=== PATIENT | female | born 1935 | race Caucasian/White ===

== ENCOUNTER 2017-09-04 11:59 | Observation (INO) ==
[2017-09-04] MEDS ORDERED: Ondansetron 4 MG/2 ML VIAL IVP ONE (12:05)
[2017-09-04] MEDS ORDERED: 0.9 % Sodium Chloride 1,000 ML IVC ONE (12:05)
[2017-09-04] MEDS ORDERED: Famotidine 20 MG/2 ML VIAL IVP ONE (12:05)
--- NOTE | 2017-09-04 12:10 | Emergency Department Note ---
Disposition Clinical Impression: Heart block AV third degree Disposition: Admitted As Inpatient Condition: Good Referrals: Dawn Brown MD [Primary Care Provider] - Forms: ED Satisfaction Letter Time of Disposition: 13:19 Nausea/Vomiting/Diarrhea HPI - General Chief complaint: ED Nausea/Vomiting/Diarrhea Stated complaint: N/V Time Seen by Provider: 09/04/17 12:05 Source: patient, family, EMS Mode of arrival: EMS Limitations: no limitations Nursing Notes Reviewed: Yes Vital Signs Reviewed: Yes - History of Present Illness HPI Narrative: Information obtained from the patient's daughter. The patient did not eat breakfast today. They were going out to eat lunch when she became diaphoretic and flushed and then developed nausea and vomiting. Possible syncopal event while sitting. The patient notes nausea and a "upset stomach" but denies abdominal pain. The daughter states this has happened "numerous" times previously without diagnosis. 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 Associated symptoms: Reports: diaphoresis, nausea/vomiting, syncope - Related Data Home Medications Medication Instructions Recorded Confirmed Aspirin [Adult Low Dose Aspirin EC] 81 mg PO DAILY #0 08/17/15 08/18/16 Esomeprazole Magnesium [Nexium] 40 mg PO DAILY #0 08/17/15 08/18/16 Lisinopril [Zestril] 20 mg PO DAILY #0 08/17/15 08/18/16 Atorvastatin [Lipitor] 40 mg PO DAILY 08/18/15 08/18/16 Cholecalciferol (Vitamin D3) 1,000 unit PO DAILY 01/06/16 08/18/16 [Vitamin D3] Fluticasone Propionate Nasal 50 mcg NS DAILY 01/06/16 08/18/16 [Flonase] Metoprolol XL (24 HR) Succ [Toprol 25 mg PO DAILY 01/06/16 08/18/16 Xl] Naproxen Sodium [Aleve] 220 mg PO BID PRN 01/06/16 08/18/16 Sennosides/Docusate Sodium [Senna 1 tab PO DAILY 01/06/16 08/18/16 Plus] Allergies Allergy/AdvReac Type Severity Reaction Status Date / Time acetaminophen [From Tylenol] AdvReac Unconscious Verified 01/06/16 13:00 All systems ED: reviewed and negative except as stated. Constitutional: Reports: as per HPI Eyes: Reports: as per HPI ENT ED: Reports: as per HPI Cardiovascular: Reports: palpitations, syncope Respiratory: Reports: as per HPI Gastrointestinal: Reports: nausea, vomiting Genitourinary: Reports: as per HPI Musculoskeletal: Reports: as per HPI Integumentary: Reports: other (Diaphoresis) Neurological: Reports: as per HPI Psychiatric: Reports: as per HPI Endocrine: Reports: as per HPI Hematological/Lymphatic: Reports: as per HPI Allergic/Immunologic: Reports: as per HPI Past Medical History - Past Medical History Source: patient Medical history: Reports: arthritis, asthma, coronary artery disease, GERD, hyperlipidemia, hypertension Surgical history: Reports: breast surgery (multiple mass/cyst removal), coronary bypass (CABG), hysterectomy Psychiatric history: Reports: no psych history GARMENT STEAMER history: Reports: non-contributory - Social History Smoking Status: Never smoker Smokeless Tobacco Status: No Alcohol use: Reports: none Drug use: Reports: none Physical Exam Actively retching - General Limitations: no limitations General appearance: alert - Head Head exam: atraumatic - Eye Eye exam: Present: normal appearance - ENT ENT exam: normal exam - Neck Neck exam: Present: normal inspection - Chest Chest inspection: Present: normal inspection, symmetric chest wall rise - Respiratory Respiratory exam: Present: normal lung sounds bilaterally - Cardiovascular Cardiovascular exam: Present: regular rate, normal rhythm, normal heart sounds - Abdominal Exam Abdominal exam: Present: soft, Non-Tender Abdominal tenderness: Absent: RUQ - Extremities Exam Extremities exam: Present: normal inspection - Neurological Exam Neurological exam: Present: alert, oriented X3, CN II-XII intact - Psychiatric Psychiatric exam: Present: normal affect, normal mood - Skin Skin exam: Present: warm, intact, diaphoresis Course Course Narrative: Patient presents with nausea, vomiting, diaphoresis. She is actively retching at the time of my exam - Reevaluation(s) Reevaluation #1: The patient had an identified bradycardia arrhythmia on the heat treat technician. I did review the rhythm strip and suspect third-degree heart block. Cardiology paged. Case discussed with the admitting hospitalist Dr. Harper who accepts admission. I will obtain the patient's home medication list Vital Signs Temperature 98.0 F 09/04/17 12:12 Pulse Rate 91 09/04/17 12:12 Respiratory Rate 12 09/04/17 12:12 Blood Pressure 138/79 09/04/17 12:12 O2 Sat by Pulse Oximetry 89 09/04/17 12:12 Temperature 98 F 09/04/17 12:23 Pulse Rate 87 09/04/17 12:23 Respiratory Rate 14 09/04/17 12:23 Blood Pressure 138/79 09/04/17 12:23 O2 Sat by Pulse Oximetry 95 09/04/17 12:38 Oxygen Delivery Oxygen Delivery Nasal Cannula Nausea/Vomiting/Diarrhea - Medical Records Medical records reviewed: Yes I reviewed the patient's medical records. - Lab Data Lab results reviewed: Yes I reviewed the patient's lab results. Result diagrams: 09/04/17 12:30 09/04/17 12:30 Lab Results 09/04/17 09/04/17 09/04/17 Range/Units 12:30 12:30 12:30 WBC 11.2 H (4.3-11.1) K/mcL RBC 5.26 H (3.82-4.97) M/mcL Hgb 12.8 (11.5-15.4) g/dL Hct 41.5 (35.3-44.9) % MCV 78.9 L (83.0-100.0) fL MCH 24.3 L (28.0-33.3) pg MCHC 30.8 L (31.6-35.5) g/dL RDW 17.8 H (11.5-14.5) % Plt Count 448 H (140-400) K/mcL MPV 10.7 (9.4-12.4) fL Immature Gran % 0.4 (0-4) % Seg Neutrophils % 69.8 % Lymphocytes % 23.3 % Monocytes % 5.2 % Eosinophils % 0.7 % Basophils % 0.6 % Neutrophils # 7.8 (1.6-8.9) K/mcL Lymphocytes # 2.6 (0.6-4.6) K/mcL Monocytes # 0.6 (0.0-1.3) K/mcL Eosinophils # 0.1 (0.0-0.6) K/mcL Basophils # 0.1 (0.0-0.2) K/mcL Sodium 140 (136-145) mEq/L Potassium 3.7 (3.5-4.5) mEq/L Chloride 108 (98-109) mEq/L Carbon Dioxide 18 L (19-29) mEq/L BUN 15 (7-20) mg/dL Creatinine 1.38 H (0.57-1.11) mg/dL Est GFR ( Amer) 44 L (> 60) Est GFR (Non-Af Amer) 36 L (> 60) BUN/Creatinine Ratio 11 (6-26) Glucose 161 H (70-99) mg/dL POC Glucose (58-89) Calculated Osmolality 294 (280-300) Calcium 9.2 (8.6-10.8) mg/dL Total Bilirubin 0.5 (0.2-1.2) mg/dL AST 23 (5-34) Units/L ALT 18 (0-55) Units/L Alkaline Phosphatase 100 (38-126) Units/L Troponin I 0.00 (0-0.03) ng/mL Serum Total Protein 7.5 (6.0-8.3) g/dL Albumin 3.8 (3.5-5.0) g/dL Globulin 3.7 H (2.4-3.5) g/dL Albumin/Globulin Ratio 1.0 L (1.1-2.2) Amylase 67 (25-125) Units/L 11/15/17 Range/Units 12:34 WBC (4.3-11.1) K/mcL RBC (3.82-4.97) M/mcL Hgb (11.5-15.4) g/dL Hct (35.3-44.9) % MCV (83.0-100.0) fL MCH (28.0-33.3) pg MCHC (31.6-35.5) g/dL RDW (11.5-14.5) % Plt Count (140-400) K/mcL MPV (9.4-12.4) fL Immature Gran % (0-4) % Seg Neutrophils % % Lymphocytes % % Monocytes % % Eosinophils % % Basophils % % Neutrophils # (1.6-8.9) K/mcL Lymphocytes # (0.6-4.6) K/mcL Monocytes # (0.0-1.3) K/mcL Eosinophils # (0.0-0.6) K/mcL Basophils # (0.0-0.2) K/mcL Sodium (136-145) mEq/L Potassium (3.5-4.5) mEq/L Chloride (98-109) mEq/L Carbon Dioxide (19-29) mEq/L BUN (7-20) mg/dL Creatinine (0.57-1.11) mg/dL Est GFR ( Amer) (> 60) Est GFR (Non-Af Amer) (> 60) BUN/Creatinine Ratio (6-26) Glucose (70-99) mg/dL POC Glucose 146 H (58-89) Calculated Osmolality (280-300) Calcium (8.6-10.8) mg/dL Total Bilirubin (0.2-1.2) mg/dL AST (5-34) Units/L ALT (0-55) Units/L Alkaline Phosphatase (38-126) Units/L Troponin I (0-0.03) ng/mL Serum Total Protein (6.0-8.3) g/dL Albumin (3.5-5.0) g/dL Globulin (2.4-3.5) g/dL Albumin/Globulin Ratio (1.1-2.2) Amylase (25-125) Units/L - Radiology Data Radiology results reviewed: Yes I reviewed the patient's radiology results. - EKG Data EKG attestation: Yes I reviewed and interpreted this EKG. EKG results narrative: Sinus rhythm with first-degree AV block rate 89 IN 218 QRS 87 QT/QTC 386/432 Critical Care Time Critical Care Time: Yes Total Critical Care Time: 30 Attestation: The high probability of a clinically significant, sudden or life threatening deterioration of the [] system(s) required my full and direct attention, intervention and personal management. The aggregate critical care time was [] minutes. This time is in addition to time spent performing reported procedures but includes the following: [] Data Review and interpretation [] Patient assessment and monitoring of vital signs [] Documentation [] Medication orders and management
[2017-09-04 12:46] LABS: Basophils # 0.1 K/mcL (0.0-0.2); Basophils % 0.6 %; Eosinophils # 0.1 K/mcL (0.0-0.6); Eosinophils % 0.7 %; Hematocrit 41.5 % (35.3-44.9); Hemoglobin 12.8 g/dL (11.5-15.4); Immature Granulocytes % 0.4 % (0-4); Lymphocytes # 2.6 K/mcL (0.6-4.6); Lymphocytes % 23.3 %; Mean Corpuscular HGB Conc 30.8 g/dL (31.6-35.5); Mean Corpuscular Hemoglobin 24.3 pg (28.0-33.3); Mean Corpuscular Volume 78.9 fL (83.0-100.0); Mean Platelet Volume 10.7 fL (9.4-12.4); Monocytes # 0.6 K/mcL (0.0-1.3); Monocytes % 5.2 %; Neutrophils # 7.8 K/mcL (1.6-8.9); Platelet Count 448 K/mcL (140-400); Red Blood Count 5.26 M/mcL (3.82-4.97); Red Cell Distribution Width 17.8 % (11.5-14.5); Segmented Neutrophils % 69.8 %
[2017-09-04 12:57] LABS: Albumin 3.8 g/dL (3.5-5.0); Bilirubin,Total 0.5 mg/dL (0.2-1.2); Calcium 9.2 mg/dL (8.6-10.8); Globulin 3.7 g/dL (2.4-3.5); Potassium 3.7 mEq/L (3.5-4.5); Total Protein 7.5 g/dL (6.0-8.3)
[2017-09-04 13:39] LABS: Magnesium 1.8 mg/dL (1.6-2.6)
[2017-09-04] MEDS ORDERED: Ondansetron 4 MG/2 ML VIAL IVP PRN (14:20)
[2017-09-04] MEDS ORDERED: Naloxone 0.4 MG/ML INJ IVP PRN (14:20)
[2017-09-04] MEDS ORDERED: MOM Conc 10 ML UD.LIQ PO PRN (14:20)
[2017-09-04] MEDS ORDERED: Mag Hydrox/Al Hydrox/Simeth 30 ML UDC PO PRN (14:20)
--- NOTE | 2017-09-04 15:27 | Internal Med History&Physical ---
Date of Encounter: 09/04/17 Time of Encounter: 15:00 Assessment and Plan (1) Heart block AV third degree Current visit: Yes Status: Acute Admit to telemetry. Hold AVN blockers. Pacer pads. Cardiology eval. (2) Syncope Current visit: No Status: Acute Appears to be related to heart block. Monitor on tele tonight. Card eval. Qualifiers: Syncope type: unspecified Qualified Code(s): R55 - Syncope and collapse (3) Chronic kidney disease, stage 3 Current visit: No Status: Chronic Avoid nephrotoxins. (4) Coronary artery disease Current visit: No Status: Chronic Chronic issue Qualifiers: Coronary Disease-Associated Artery/Lesion type: bypass graft [place] vs. transplanted heart: [place] heart Associated angina: without angina Qualified Code(s): I25.810 - Atherosclerosis of coronary artery bypass graft(s) without angina pectoris (5) Hypertension Current visit: No Status: Chronic Chronic issue Qualifiers: Hypertension type: essential hypertension Qualified Code(s): I10 - Essential (primary) hypertension (6) Hyperlipidemia Current visit: No Status: Chronic Chronic issue Qualifiers: Hyperlipidemia type: unspecified Qualified Code(s): E78.5 - Hyperlipidemia , unspecified Internal Medicine - H&P: HPI Chief complaint: syncope Admitted From: Emergency Dept Plans for Post Hospital Care: Home History of present illness: Ms. Ojeda is a 82 year old female presented to ED after syncopal episode. She had been at store when she became dizzy and nausea. She vomited and passed out. Transported to ED and found to have episode of complete heart block. Currently she feels fine and is at baseline. No fever or chills. No chest pain. Takes metoprolol. She is high risk due to potential for worsening cardiac status and heart block. Past Med Surg Social Fam HX - Past Medical History Medical history: arthritis, asthma, coronary artery disease, GERD, hyperlipidemia, hypertension Psychiatric history: no psych history - Past Surgical History Surgical History: breast surgery, coronary bypass (CABG), hysterectomy - Social History Smoking Status: Never smoker Smokeless Tobacco Status: No Alcohol use: none Drug use: none - Family History Mother Family Member Ethnicity: Non- Living Status: Hx Family Cardiac Disorders: No Hx Family Respiratory Disorders: No Hx Family Cancer: Yes (Breast CA) Hx Family GI Disorders: No Hx Family Endocrine Disorder: No Hx Family Neuromuscular Disorders: No Hx Family Neurologic Disorders: Yes (Stroke) Hx Family HEENT Disorders: No Hx Family Autoimmune Disorders: No Internal Medicine - H&P: Meds Aspirin [Adult Low Dose Aspirin EC] 81 mg PO DAILY #0 08/17/15 [History] Atorvastatin [Lipitor] 40 mg PO DAILY 08/18/15 [History] Cholecalciferol (Vitamin D3) [Vitamin D3] 1,000 unit PO DAILY 01/06/16 [History] Sennosides/Docusate Sodium [Senna Plus] 1 tab PO DAILY 01/06/16 [History] Esomeprazole Magnesium [Nexium 24Hr] 20 mg PO DAILY 09/04/17 [History] Metoprolol [Lopressor] 25 mg PO BID 09/04/17 [History] 3 Allergy/AdvReac Type Severity Reaction Status Date / Time acetaminophen [From Tylenol] AdvReac Unconscious Verified 09/04/17 13:45 All Systems PM: A 10-system review of systems was performed and is negative for pertinent findings except as documented above in the HPI. - Constitutional Constitutional: fatigue, malaise - EENT Eyes: no diplopia, no loss of vision Ears: no decreased hearing Nose, mouth and throat: dry mouth, no nasal discharge, no sore throat - Cardiovascular Cardiovascular ROS IM: no dyspnea, no dyspnea on exertion, no orthopnea, no paroxysmal nocturnal dyspnea - Respiratory Respiratory: no cough, no wheezing - Gastrointestinal Gastrointestinal: no abdominal pain, no constipation, no diarrhea, no melena - Genitourinary Genitourinary: no difficulty urinating, no nocturia, no urinary urgency - Musculoskeletal Musculoskeletal ROS IM: arthralgias, no back pain - Integumentary Integumentary IM: no erythema, no rash - Neurological Neurological ROS: dizziness, no confusion, no tingling - Endocrine Endocrine IM: no cold intolerance, no heat intolerance - Allergic/Immunologic Allergic/Immunologic: no itchy eyes - Constitutional Vitals: Temp Pulse Resp BP Pulse Ox 97.8 F 78 18 144/73 96 09/04/17 14:21 09/04/17 14:21 09/04/17 14:21 09/04/17 14:21 09/04/17 14:21 General appearance: Present: A&O X 3, pleasant, answers questions appropriately - Head Head exam: Present: atraumatic, normocephalic - Eye Eye exam: Present: EOMI, PERRL, conjuntiva pink - ENT ENT exam: Present: mucous membranes dry - Neck Neck exam general surgery: Absent: lymphadenopathy, thyromegaly - Respiratory Respiratory exam: Present: CTAB. Absent: rales, rhonchi, wheezes - Cardiovascular Cardiovascular exam: Present: RRR. Absent: bradycardia, tachycardia - GI/Abdominal GI/Abdominal exam: Present: soft. Absent: mass, tenderness - Extremities Exam Extremities exam: Present: warm. Absent: tenderness - Neurological Exam Neurological exam: Present: alert, oriented X3 - Skin Skin exam: Present: dry, warm. Absent: rash Internal Med - H&P Results - Labs CBC & Chem 7: 09/05/17 05:32 09/05/17 05:32
--- NOTE | 2017-09-04 15:34 | Cardiology Consult Note ---
<Maged Beatty R - Last Filed: 09/04/17 15:44> Date of Encounter: 09/04/17 Time of Encounter: 15:33 Assessment and Plan (1) Heart block AV third degree Current Visit: Yes Status: Acute Reportedly 3 episodes of syncope over the past year, most recently this AM while shopping at [employer]. She became dizzy, lightheaded, sat on a bench and had nausea/vomiting and a syncopal event. EMS called--Strips reviewed from EMS show 3rd degree heart block. Currently SR 1st degree block, HR 80s and asymptomatic. Hold BB. K 3.7. TSH normal 06/2017. Echo 05/08/17 EF preserved. Negative stress test 08/07/17. Recheck echo. Recommend PPM. Will make NPO after midnight tonight and discuss with Dr. Timmy Zambrano, tentative PPM tomorrow. (2) Syncope Current Visit: No Status: Acute Secondary to 3rd degree heart block. Will discuss with Dr. Timmy Zambrano, tentatively plan for PPM tomorrow. Qualifiers: Syncope type: unspecified Qualified Code(s): R55 - Syncope and collapse (3) Coronary artery disease Current Visit: No Status: Chronic S/P CABG x 2 in 2014. Negative stress test last month. Hold BB in setting of intermittent 3rd degree heart block. Continue ASA and Statin. Qualifiers: Coronary Disease-Associated Artery/Lesion type: bypass graft [place] vs. transplanted heart: [place] heart Associated angina: without angina Qualified Code(s): I25.810 - Atherosclerosis of coronary artery bypass graft(s) without angina pectoris Discussion w patient/family: The assessment and plan as outlined above was discussed with the patient and/or family members who expressed understanding and agreement. All questions were answered. Thank you for involving us in the care of your patient. Please call with any questions. I will discuss all the above with Dr. Hudson and make changes as necessary. History of Present Illness Consult date: 09/04/17 Requesting physician: Darinel Harper Consult reason: 3rd degree heart block Chief complaint: syncope, n/v, dizziness History of present illness: Ms. Ojeda is a 82 year old female with PMH of CAD s/p CABG 04/2015 utilizing GARCIA to LAD, SVG to diagonal for severe 2 vessel CAD, CKD stage 3. She was shopping at [employer] this AM, became dizzy/lightheaded and sat on a bench, then had nausea/vomiting and a syncopal event witnessed by daughter that reportedly lasted 1 minute. She has had approximately 3 syncopal events in the past year. EMS was called, strips on their arrival show 3rd degree heart block. On presentation here and currently she is SR with first degree block HR 80s. She is currently asymptomatic. She denies chest pain or dyspnea. Recent CV testing: Pharmacologic nuclear stress test 08/07/17: Perfusion imaging negative for ischemia or infarct. Gated EF >70%. Echo 05/08/17: LVEF 60%, Normal left ventricular size and systolic function, Mild concentric hypertrophy of the left ventricle, There is evidence of mild diastolic dysfunction of the left ventricle with elevated filling pressures, RV size is normal. Function is not well evaluated. No significant valvular dysfunction. No pulmonary hypertension by TR gradient, 19 mmHg. Past Med Surg Social Fam HX - Past Medical History Medical history: arthritis, asthma, coronary artery disease, GERD, hyperlipidemia, hypertension Psychiatric history: no psych history - Past Surgical History Surgical History: breast surgery, coronary bypass (CABG), hysterectomy - Social History Smoking Status: Never smoker Smokeless Tobacco Status: No Alcohol use: none Drug use: none - Family History Mother Family Member Ethnicity: Non- Living Status: Hx Family Cardiac Disorders: No Hx Family Respiratory Disorders: No Hx Family Cancer: Yes (Breast CA) Hx Family GI Disorders: No Hx Family Endocrine Disorder: No Hx Family Neuromuscular Disorders: No Hx Family Neurologic Disorders: Yes (Stroke) Hx Family HEENT Disorders: No Hx Family Autoimmune Disorders: No Medications and Allergies Aspirin [Adult Low Dose Aspirin EC] 81 mg PO DAILY #0 08/17/15 [History] Atorvastatin [Lipitor] 40 mg PO DAILY 08/18/15 [History] Cholecalciferol (Vitamin D3) [Vitamin D3] 1,000 unit PO DAILY 01/06/16 [History] Sennosides/Docusate Sodium [Senna Plus] 1 tab PO DAILY 01/06/16 [History] Esomeprazole Magnesium [Nexium 24Hr] 20 mg PO DAILY 09/04/17 [History] Metoprolol [Lopressor] 25 mg PO BID 09/04/17 [History] 3 Allergy/AdvReac Type Severity Reaction Status Date / Time acetaminophen [From Tylenol] AdvReac Unconscious Verified 09/04/17 13:45 All Systems Review: A 10-system review of systems was performed and is negative for pertinent findings except as documented above in the HPI. - Cardiovascular Cardiovascular: as per HPI, lightheadedness, syncope - Gastrointestinal Gastrointestinal: nausea - Neurological Neurological: dizziness, syncope Physical Examination Vital Signs, Last 4 Hours Temp Pulse Resp BP Pulse Ox 09/04/17 14:21 97.8 F 78 18 144/73 96 Vital Signs Temp Pulse Resp BP Pulse Ox 09/04/17 14:21 97.8 F 78 18 144/73 96 09/04/17 13:00 84 14 131/64 95 09/04/17 12:45 89 14 121/85 95 09/04/17 12:38 95 09/04/17 12:23 98 F 87 14 138/79 94 09/04/17 12:12 98.0 F 91 12 138/79 89 Intake and Output 09/03/17 09/04/17 09/04/17 23:59 07:59 15:59 Other: Weight 85.984 kg Blood Glucose* 146 Patient Weight 09/04/17 23:59 Weight 85.984 kg General: Conversant, No Apparent Distress HEENT: Atraumatic, Normocephaly, Mucus Membranes Moist Neck: No JVD, Normal carotid pulses Cardiac: Reg Rate and Rhythm, Normal S1 and S2, No Murmur Lungs: Normal Breath Sounds, No Wheeze, Rales, Rhonchi Neuro: Alert and responsive, No focal deficits noted Abdomen: Soft, Non-Tender Skin: No rashes noted on visualized skin Musculoskeletal: No Chest Wall Tenderness Extremities: No Clubbing, No Cyanosis, No Edema, Normal Pulses Results 09/04/17 12:30 09/04/17 12:30 Short CBC 09/04/17 Range/Units 12:30 WBC 11.2 H (4.3-11.1) K/mcL Hgb 12.8 (11.5-15.4) g/dL Hct 41.5 (35.3-44.9) % Plt Count 448 H (140-400) K/mcL Neutrophils # 7.8 (1.6-8.9) K/mcL BMP 09/04/17 Range/Units 12:30 Sodium 140 (136-145) mEq/L Potassium 3.7 (3.5-4.5) mEq/L Chloride 108 (98-109) mEq/L Carbon Dioxide 18 L (19-29) mEq/L BUN 15 (7-20) mg/dL Creatinine 1.38 H (0.57-1.11) mg/dL Glucose 161 H (70-99) mg/dL Calcium 9.2 (8.6-10.8) mg/dL Cardiac Enzymes 09/04/17 Range/Units 12:30 Troponin I 0.00 (0-0.03) ng/mL Liver Function 09/04/17 Range/Units 12:30 Total Bilirubin 0.5 (0.2-1.2) mg/dL AST 23 (5-34) Units/L ALT 18 (0-55) Units/L Alkaline Phosphatase 100 (38-126) Units/L Albumin 3.8 (3.5-5.0) g/dL Impressions Chest X-Ray 09/04/17 13:00 IMPRESSION: Left lower lobe airspace disease with hypoaeration at the lung bases bilaterally similar in appearance to the previous exam done July 2016 most likely reflecting atelectatic changes D/ / Neal Bailey MD / Neal Bailey MD Interpreting Provider: Neal Bailey MD Active Medications Al Hydrox/Mg Hydrox/Simethicone (Maalox) 15 ml PO Q6HR PRN PRN Reason: Dyspepsia Stop: 03/06/18 14:21 Magnesium Hydroxide (Milk Of Magnesia Conc) 10 ml PO DAILY PRN PRN Reason: Indigestion Stop: 03/06/18 14:21 Naloxone HCl (Narcan) 0.4 mg IVP Q2MIN PRN PRN Reason: Opioid Reversal Stop: 03/06/18 14:21 Ondansetron HCl (Zofran) 4 mg IVP Q8HR PRN PRN Reason: Nausea And Vomiting Stop: 03/06/18 14:21 - Imaging and Cardiology Stress Test: report reviewed Echo: report reviewed Cardiac cath: report reviewed - EKG Interpretation EKG results cardiology: personally reviewed (3rd degree heart block on strips, EKG SR 1st degree block) Consult Discharge Plan - Plan Referrals: Dawn Brown MD [Primary Care Provider] - <Zysek,Esther - Last Filed: 09/05/17 15:08> Date of Encounter: 09/05/17 - Attending Attestation I have personally performed a face to face evaluation on this patient. I have reviewed and agree with the care plan with HEAT TREATER HEAD: Ms. Ojeda presents with a syncopal event while shopping. She's had a few episodes of syncope over the past year. Rhythm strips by EMS demonstrated CHB. She has been hemodynamically stable currently in NSR with first degree block. Recommend holding beta loraine. TSH, K normal. Echo previously demonstrated normal LV systolic function. Negative stress test in July 2017. Recommend EP consult for pacemaker placement. Assessment and Plan Discussion w patient/family: The assessment and plan as outlined above was discussed with the patient and/or family members who expressed understanding and agreement. All questions were answered. Thank you for involving us in the care of your patient. Please call with any questions. History of Present Illness History of present illness: Ms. Ojeda is a 82 year old female All Systems Review: A 10-system review of systems was performed and is negative for pertinent findings except as documented above in the HPI. Physical Examination Vital Signs, Last 4 Hours Temp Pulse Resp BP Pulse Ox 09/05/17 11:26 98.5 F 71 16 147/77 95 Results 09/05/17 05:32 09/05/17 05:32 Lab Results 09/05/17 09/05/17 09/05/17 05:32 05:32 13:11 WBC 10.5 Hgb 10.8 L D Hct 36.2 Plt Count 317 INR 1.1 Sodium 139 Potassium 4.2 Chloride 109 Carbon Dioxide 24 BUN 15 Creatinine 1.04 Glucose 103 H Calcium 8.5 L Magnesium 1.9
--- NOTE | 2017-09-04 15:52 | Electrocardiograph Report ---
[place] [address] Test Date: 2017-09-04 Pat Name: Carey Ojeda Department: 104 Room: 3B46 Gender: F Weight Inspector: MSC : 1935 Requested By: Vita Torres Order Number: [id number] Reading MD: Derrick Sanchez MD Measurements Intervals [place] Rate: 89 P: -19 NM: 218 QRS: 23 QRSD: 87 T: 27 QT: 386 QTc: 432 Interpretive Statements SINUS RHYTHM WITH FIRST DEGREE AV BLOCK BASELINE ARTIFACT Electronically Signed On 09-04-2017 15:50:43 EST by Derrick Sanchez MD
--- NOTE | 2017-09-04 15:53 | Electrocardiograph Report ---
[address] [place] [address] Test Date: 2017-09-04 Pat Name: Carey Ojeda Department: 104 Room: 3B46 Gender: F Plastic Surgery Technician: : 1935 Requested By: Bony Hoover Order Number: [id number] Reading MD: Derrick Sanchez MD Measurements Intervals [place] Rate: 87 P: -15 IA: 223 QRS: 18 QRSD: 105 T: 11 QT: 403 QTc: 447 Interpretive Statements SINUS RHYTHM WITH FIRST DEGREE AV BLOCK INFERIOR MYOCARDIAL INFARCTION, PROBABLY OLD Electronically Signed On 09-04-2017 15:51:35 EST by Derrick Sanchez MD
[2017-09-05 06:10] LABS: Basophils # 0.1 K/mcL (0.0-0.2); Basophils % 0.5 %; Eosinophils # 0.1 K/mcL (0.0-0.6); Hematocrit 36.2 % (35.3-44.9); Immature Granulocytes % 0.4 % (0-4); Lymphocytes # 2.1 K/mcL (0.6-4.6); Lymphocytes % 20.2 %; Mean Corpuscular HGB Conc 29.8 g/dL (31.6-35.5); Mean Corpuscular Hemoglobin 24.1 pg (28.0-33.3); Mean Corpuscular Volume 80.6 fL (83.0-100.0); Mean Platelet Volume 11.1 fL (9.4-12.4); Monocytes # 0.9 K/mcL (0.0-1.3); Monocytes % 8.1 %; Neutrophils # 7.4 K/mcL (1.6-8.9); Platelet Count 317 K/mcL (140-400); Red Blood Count 4.49 M/mcL (3.82-4.97); Segmented Neutrophils % 69.8 %
[2017-09-05 06:12] LABS: Hemoglobin 10.8 g/dL (11.5-15.4)
[2017-09-05 06:26] LABS: BUN/Creatinine Ratio 14 (6-26); Blood Urea Nitrogen 15 mg/dL (7-20); Calcium 8.5 mg/dL (8.6-10.8); Carbon Dioxide 24 mEq/L (19-29); Chloride 109 mEq/L (98-109); Glucose 103 mg/dL (70-99); Magnesium 1.9 mg/dL (1.6-2.6); Osmolality,Calculated 289 (280-300); Potassium 4.2 mEq/L (3.5-4.5); Sodium 139 mEq/L (136-145); eGFR For African Americans > 60 (> 60); eGFR For Non-African Americans 50 (> 60)
[2017-09-05] MEDS: Aspirin 81 MG TAB.CHEW PO SCH (09:30)
--- NOTE | 2017-09-05 11:37 | Electrophysiology Consult Note ---
<Priscilla Angel - Last Filed: 09/05/17 11:43> Date of Encounter: 09/05/17 Time of Encounter: 10:00 Assessment and Plan (1) Heart block AV third degree Current Visit: Yes Status: Acute Per EP: -Reportedly 3 episodes of syncope over the past year, most recently this AM while shopping at [employer]. She became dizzy, lightheaded, sat on a bench and had nausea/vomiting and a syncopal event. -EMS called--Strips reviewed from EMS show 3rd degree heart block. -Average HR on telemetry noted to be 73, sinus rhythm. PACs and PVCs noted. -Hold BB. -TSH normal 06/2017. -Echo 05/08/17 EF preserved. Negative stress test 08/07/17. -TTE this admission with LVEF 60-65%, mild concentric LVH, all morillo with normal motion. -Recommend PPM. RIsks versus benefits explained to patient and family. Patient agreeable to proceed. -Will continue to monitor. (2) Syncope Current Visit: No Status: Acute Per EP: -Suspect Secondary to 3rd degree heart block. -Plan for PPM today. Qualifiers: Syncope type: unspecified Qualified Code(s): R55 - Syncope and collapse Discussion w patient/family: The assessment and plan as outlined above was discussed with the patient and/or family members who expressed understanding and agreement. All questions were answered. Thank you for involving us in the care of your patient. Please call with any questions. Discussed and reviewed with Dr.John Zambrano. History of Present Illness Consult date: 09/05/17 Requesting physician: Maged Beatty Consult reason: third degree heart block Chief complaint: syncope History of present illness: Ms. Ojeda is a 82 year old female with PMH of CAD s/p CABG 04/2015 utilizing GARCIA to LAD, SVG to diagonal for severe 2 vessel CAD, CKD stage 3. Patient presented to [facility] after syncopal event at [facility] per EMS. EP has been asked to see and evaluate patient due to third degree heart block noted on strips from EMS. Patient reports over the past year has had 3 syncopal episodes. Patient denies current dizziness or lightheadedness. Past Med Surg Social Fam HX - Past Medical History Attestation: Yes The following information was validated with the patient. Source: patient, old records reviewed, obtained from family Medical history: arthritis, asthma, coronary artery disease, GERD, hyperlipidemia, hypertension, syncope Psychiatric history: no psych history - Past Surgical History Surgical History: breast surgery, coronary bypass (CABG), hysterectomy - Social History Smoking Status: Never smoker Smokeless Tobacco Status: No Alcohol use: none Drug use: none - Family History Mother Family Member Ethnicity: Non- Living Status: Hx Family Cardiac Disorders: No Hx Family Respiratory Disorders: No Hx Family Cancer: Yes (Breast CA) Hx Family GI Disorders: No Hx Family Endocrine Disorder: No Hx Family Neuromuscular Disorders: No Hx Family Neurologic Disorders: Yes (Stroke) Hx Family HEENT Disorders: No Hx Family Autoimmune Disorders: No Medications and Allergies Aspirin [Adult Low Dose Aspirin EC] 81 mg PO DAILY #0 08/17/15 [History] Atorvastatin [Lipitor] 40 mg PO DAILY 08/18/15 [History] Cholecalciferol (Vitamin D3) [Vitamin D3] 1,000 unit PO DAILY 01/06/16 [History] Sennosides/Docusate Sodium [Senna Plus] 1 tab PO DAILY 01/06/16 [History] Esomeprazole Magnesium [Nexium 24Hr] 20 mg PO DAILY 09/04/17 [History] Metoprolol [Lopressor] 25 mg PO BID 09/04/17 [History] 3 Allergy/AdvReac Type Severity Reaction Status Date / Time acetaminophen [From Tylenol] AdvReac Unconscious Verified 09/04/17 13:45 All Systems Review: A 10-system review of systems was performed and is negative for pertinent findings except as documented above in the HPI. - Cardiovascular Cardiovascular: as per HPI - Neurological Neurological: syncope Physical Examination Vital Signs, Last 4 Hours Temp Pulse Resp BP Pulse Ox 09/05/17 11:26 98.5 F 71 16 147/77 95 09/05/17 09:30 95 09/05/17 07:52 97.6 F 66 18 125/78 95 General: Conversant, No Apparent Distress HEENT: Atraumatic, Normocephaly, Mucus Membranes Moist Neck: No JVD, Normal carotid pulses Cardiac: Reg Rate and Rhythm, Normal S1 and S2, No Murmur Lungs: Normal Breath Sounds, No Wheeze, Rales, Rhonchi Neuro: Alert and responsive, No focal deficits noted Abdomen: Soft, Non-Tender Skin: No rashes noted on visualized skin Musculoskeletal: No Chest Wall Tenderness Extremities: No Clubbing, No Cyanosis, No Edema, Normal Pulses Results 09/05/17 05:32 09/05/17 05:32 Lab Results Impressions Chest X-Ray 09/04/17 13:00 IMPRESSION: Left lower lobe airspace disease with hypoaeration at the lung bases bilaterally similar in appearance to the previous exam done July 2016 most likely reflecting atelectatic changes D/ / Neal Bailey MD / Neal Bailey MD Interpreting Provider: Neal Bailey MD Echocardiogram 09/04/17 15:24 Impressions: Findings: ADDENDUM: 09/05/17 0732 Impressions: LVEF 60-65%. Normal LV chamber size and function. Mild concentric left ventricular hypertrophy. Mild left ventricular diastolic dysfunction. Normal right ventricular structure and function. No evidence of pulmonary hypertension. No significant valvular dysfunction. Left Ventricular Wall Motion: Rest Echo Findings All wall segments showed normal motion. Findings: Study Quality * Technically adequate exam. Left Ventricle * LVEF 60-65%. * Normal LV chamber size and function. * Mild concentric left ventricular hypertrophy. * Mild left ventricular diastolic dysfunction. Right Ventricle * Normal right ventricular structure and function. Left Atrium * Mildly dilated left atrium. Right Atrium * Normal right atrial size. Aortic Valve * Aortic valve not well visualized. * Appears calcified along the annulus. * No aortic regurgitation. * No aortic stenosis. Mitral Valve * Moderate mitral annular calcification, especially posteriorly. * Mildly thickened mitral valve leaflets. * No mitral regurgitation. * No significant mitral stenosis by Doppler. Tricuspid Valve * Normal tricuspid valve structure and function. * Trace tricuspid regurgitation. * No evidence of pulmonary hypertension. Pulmonic Valve * Pulmonic valve is not well visualized. * No pulmonic regurgitation. Aorta * Normally sized aortic root. Pericardium * The pericardium appears normal. IVC * Normal IVC dimensions and inspiratory collapse. Pulmonary Artery * Normal visualized portions of the main pulmonary artery. ECG Findings * Normal sinus rhythm. Active Medications Al Hydrox/Mg Hydrox/Simethicone (Maalox) 15 ml PO Q6HR PRN PRN Reason: Dyspepsia Stop: 03/06/18 14:21 Aspirin (Aspirin) 81 mg PO DAILY G[facility] Stop: 03/07/18 09:01 Last Admin: 09/05/17 09:30 Dose: Not Given Atorvastatin Calcium (Lipitor) 40 mg PO HS GEE Stop: 03/06/18 21:01 Last Admin: 09/04/17 20:15 Dose: 40 mg Magnesium Hydroxide (Milk Of Magnesia Conc) 10 ml PO DAILY PRN PRN Reason: Indigestion Stop: 03/06/18 14:21 Naloxone HCl (Narcan) 0.4 mg IVP Q2MIN PRN PRN Reason: Opioid Reversal Stop: 03/06/18 14:21 Ondansetron HCl (Zofran) 4 mg IVP Q8HR PRN PRN Reason: Nausea And Vomiting Stop: 03/06/18 14:21 Laboratory Tests 09/04/17 09/05/17 09/05/17 12:30 05:32 05:32 Hgb 10.8 L D Potassium 4.2 Creatinine 1.04 Magnesium 1.9 Troponin I 0.00 - Imaging and Cardiology Chest Xray: report reviewed Stress Test: report reviewed Echo: report reviewed - EKG Interpretation EKG results cardiology: personally reviewed (ECG with SR with first degree block , HR 89.), other (Telemetry reviewed with average HR previous 12 hours noted to be 73, sinus rhythm. PVCs and PACs noted.) Consult Discharge Plan - Plan Referrals: Dawn Brown MD [Primary Care Provider] - <Timmy Zambrano Harshil - Last Filed: 09/05/17 14:29> Date of Encounter: 09/05/17 - Attending Attestation I have personally performed a face to face evaluation on this patient. I have reviewed and agree with the care plan. History and Exam by me shows: Syncope, high grade AV block. Discussed risks and benefits of pacemaker, she agrees to proceed. Assessment and Plan Discussion w patient/family: The assessment and plan as outlined above was discussed with the patient and/or family members who expressed understanding and agreement. All questions were answered. Thank you for involving us in the care of your patient. Please call with any questions. History of Present Illness History of present illness: Ms. Ojeda is a 82 year old female All Systems Review: A 10-system review of systems was performed and is negative for pertinent findings except as documented above in the HPI. Physical Examination Vital Signs, Last 4 Hours Temp Pulse Resp BP Pulse Ox 09/05/17 11:26 98.5 F 71 16 147/77 95 Results 09/05/17 05:32 09/05/17 05:32 Lab Results 09/05/17 09/05/17 09/05/17 05:32 05:32 13:11 WBC 10.5 Hgb 10.8 L D Hct 36.2 Plt Count 317 INR 1.1 Sodium 139 Potassium 4.2 Chloride 109 Carbon Dioxide 24 BUN 15 Creatinine 1.04 Glucose 103 H Calcium 8.5 L Magnesium 1.9
--- NOTE | 2017-09-05 11:39 | Pre-Sedation Evaluation ---
Pre-sedation evaluation - Pre-sedation checklist Date of procedure: 09/05/17 Procedure: pacemaker Recent Vitals: Last Vital Signs Temp 98.5 F 09/05/17 11:26 Pulse 71 09/05/17 11:26 Resp 16 09/05/17 11:26 BP 147/77 09/05/17 11:26 Pulse Ox 95 09/05/17 11:26 H&P (including ROS) documented in medical record: No Previous reaction to sedatives/anesthetics: No Dietary Status: NPO after Midnight Airway Assessment: Patient can open mouth completely, TMJ function normal, Micrognathia (under-bite, receding chin) absent Dentition: No loose teeth or bridges Possible difficult airway: No ASA Classification *see protocol: CLASS II-Mild systemic disease Plan of Care: Pt appropriate candidate for procedure/moderate/conscious sedation , Risks/benefits of procedure/sedation discussed w/ patient/family
[2017-09-05 13:24] LABS: INR 1.1; Prothrombin Time 11.6 Seconds (9.4-12.1)
--- NOTE | 2017-09-05 14:33 | Internal Med Progress Note ---
Date of Encounter: 09/05/17 Time of Encounter: 12:55 - Assessment and plan (1) Heart block AV third degree Current Visit: Yes Status: Acute Assessment and plan: Cardiology on board and consultation appreciated holding BB scheduled for PPM placement today repeat 2D echo reported: LVEF 60-65% with mild LV diastolic dysfunction, mild concentric LVH (2) Syncope Current Visit: No Status: Acute Assessment and plan: secondary to third degree AV block PPM placement scheduled for later today Qualifiers: Syncope type: unspecified Qualified Code(s): R55 - Syncope and collapse (3) Hyperlipidemia Current Visit: No Status: Chronic Assessment and plan: continue statin therapy Qualifiers: Hyperlipidemia type: unspecified Qualified Code(s): E78.5 - Hyperlipidemia , unspecified (4) Coronary artery disease Current Visit: No Status: Chronic Assessment and plan: continue ASA and Statin no signs of angina present at this time Qualifiers: Coronary Disease-Associated Artery/Lesion type: bypass graft [place] vs. transplanted heart: [place] heart Associated angina: without angina Qualified Code(s): I25.810 - Atherosclerosis of coronary artery bypass graft(s) without angina pectoris (5) DVT prophylaxis Current Visit: Yes Status: Acute Assessment and plan: SCD - Subjective Interval history: Patient seen and examined with family present at bedside. Resting in bed and denies any discomfort at this time. Scheduled for a PPM placement today. No overnight events reported. - Constitutional Vitals: Temp Pulse Resp BP Pulse Ox 98.5 F 71 16 147/77 95 09/05/17 11:26 09/05/17 11:26 09/05/17 11:26 09/05/17 11:26 09/05/17 11:26 General appearance: Present: A&O X 3, no acute distress, obese, answers questions appropriately - Head Head exam: Present: atraumatic, normocephalic - Eye Eye exam: Present: conjuntiva pink, sclera anicteric - Respiratory Respiratory exam: Present: CTAB. Absent: respiratory distress, wheezes - Cardiovascular Cardiovascular exam: Present: RRR, +S1, +S2. Absent: diastolic murmur, gallop, rubs, systolic murmur - GI/Abdominal GI/Abdominal exam: Present: normal bowel sounds, soft, no peritoneal signs. Absent: distended, tenderness - Extremities Exam Extremities exam: Present: warm, radial pulses palpable and symmetrical. Absent : calf tenderness - Neurological Exam Neurological exam: Present: alert, oriented X3 - Psychiatric Psychiatric exam: Present: normal affect, normal mood Internal Medicine: Result - Labs CBC & Chem 7: 09/05/17 05:32 09/05/17 05:32 Labs: Short CBC 09/05/17 Range/Units 05:32 WBC 10.5 (4.3-11.1) K/mcL Hgb 10.8 L D (11.5-15.4) g/dL Hct 36.2 (35.3-44.9) % Plt Count 317 (140-400) K/mcL Neutrophils # 7.4 (1.6-8.9) K/mcL BMP 09/05/17 05:32 Sodium 139 Potassium 4.2 Chloride 109 Carbon Dioxide 24 BUN 15 Creatinine 1.04 Glucose 103 H Calcium 8.5 L - ABG Interpretation ABG results: PT/INR, D-dimer PT 11.6 Seconds (9.4-12.1) 09/05/17 13:11 - Impressions Impressions Echocardiogram 09/04/17 15:24 Impressions: Findings: ADDENDUM: 09/05/17 0732 Impressions: LVEF 60-65%. Normal LV chamber size and function. Mild concentric left ventricular hypertrophy. Mild left ventricular diastolic dysfunction. Normal right ventricular structure and function. No evidence of pulmonary hypertension. No significant valvular dysfunction. Left Ventricular Wall Motion: Rest Echo Findings All wall segments showed normal motion. Findings: Study Quality * Technically adequate exam. Left Ventricle * LVEF 60-65%. * Normal LV chamber size and function. * Mild concentric left ventricular hypertrophy. * Mild left ventricular diastolic dysfunction. Right Ventricle * Normal right ventricular structure and function. Left Atrium * Mildly dilated left atrium. Right Atrium * Normal right atrial size. Aortic Valve * Aortic valve not well visualized. * Appears calcified along the annulus. * No aortic regurgitation. * No aortic stenosis. Mitral Valve * Moderate mitral annular calcification, especially posteriorly. * Mildly thickened mitral valve leaflets. * No mitral regurgitation. * No significant mitral stenosis by Doppler. Tricuspid Valve * Normal tricuspid valve structure and function. * Trace tricuspid regurgitation. * No evidence of pulmonary hypertension. Pulmonic Valve * Pulmonic valve is not well visualized. * No pulmonic regurgitation. Aorta * Normally sized aortic root. Pericardium * The pericardium appears normal. IVC * Normal IVC dimensions and inspiratory collapse. Pulmonary Artery * Normal visualized portions of the main pulmonary artery. ECG Findings * Normal sinus rhythm. Consult Discharge Plan - Plan Referrals: Dawn Brown MD [Primary Care Provider] -
[2017-09-05] MEDS ORDERED: Water for inj. (sterile) 10 ML IV ONE (14:41)
[2017-09-05] MEDS ORDERED: 0.9 % Sodium Chloride 500 ML ONE (14:41)
[2017-09-05] MEDS ORDERED: D5% in Water 100 ML ONE (14:42)
[2017-09-05] MEDS ORDERED: CeFAZolin Syr 2,000MG/20 ML 2,000 MG/20 ML SYRINGE IVPB ONE (14:43)
[2017-09-05] MEDS ORDERED: 0.9 % Sodium Chloride 1,000 ML ONE (14:52)
[2017-09-05] MEDS ORDERED: *HR* Midazolam HCl 2 MG/2 ML VIAL ONE (15:01)
[2017-09-05] MEDS ORDERED: *HR* FentaNYL (PF) 100 MCG/2 ML VIAL ONE (15:01)
[2017-09-05] MEDS ORDERED: *HR* Morphine 2 MG/ML SYRINGE IVP PRN (15:53)
[2017-09-05] MEDS: CeFAZolin Premix DUPLEX 2,000 MG/50 ML BAG IVPB SCH ×2 (17:37→23:41)
[2017-09-06 04:37] LABS: Basophils % 0.4 %; Eosinophils # 0.2 K/mcL (0.0-0.6); Eosinophils % 2.3 %; Hematocrit 37.9 % (35.3-44.9); Hemoglobin 11.5 g/dL (11.5-15.4); Immature Granulocytes % 0.9 % (0-4); Lymphocytes # 1.9 K/mcL (0.6-4.6); Lymphocytes % 18.6 %; Mean Corpuscular HGB Conc 30.3 g/dL (31.6-35.5); Mean Corpuscular Hemoglobin 24.2 pg (28.0-33.3); Mean Corpuscular Volume 79.8 fL (83.0-100.0); Mean Platelet Volume 11.2 fL (9.4-12.4); Monocytes # 0.8 K/mcL (0.0-1.3); Monocytes % 7.3 %; Neutrophils # 7.4 K/mcL (1.6-8.9); Platelet Count 333 K/mcL (140-400); Red Blood Count 4.75 M/mcL (3.82-4.97); Segmented Neutrophils % 70.5 %
[2017-09-06 04:55] LABS: Calcium 8.6 mg/dL (8.6-10.8); Phosphorous 3.3 mg/dL (2.3-4.7); Potassium 3.9 mEq/L (3.5-4.5)
[2017-09-06] MEDS: Aspirin 81 MG TAB.CHEW PO SCH (09:09)
--- NOTE | 2017-09-06 10:05 | Electrophysiology ProgressNote ---
Date of Encounter: 09/06/17 Time of Encounter: 09:45 Assessment and Plan (1) Heart block AV third degree Current Visit: Yes Status: Resolved Per EP: -Reportedly 3 episodes of syncope over the past year, most recently this AM while shopping at [employer]. She became dizzy, lightheaded, sat on a bench and had nausea/vomiting and a syncopal event. -EMS called--Strips reviewed from EMS show 3rd degree heart block. -S/p dual chamber pacer yesterday. -Average HR on telemetry noted to be 79, sinus rhythm. PACs and PVCs noted. -TSH normal 06/2017. -Echo 05/08/17 EF preserved. Negative stress test 08/07/17. -TTE this admission with LVEF 60-65%, mild concentric LVH, all morillo with normal motion. -Device check with normal functioning pacemaker. -Chest x-ray with no evidence of pneumothorax. -Cardiology will sign off and will follow in outpatient setting. Follow up set. -OK to resume beta loraine. (2) Syncope Current Visit: No Status: Resolved Per EP: -Suspect Secondary to 3rd degree heart block. -s/p pacemaker yesterday. Qualifiers: Syncope type: unspecified Qualified Code(s): R55 - Syncope and collapse Discussion w patient/family: The assessment and plan as outlined above was discussed with the patient who expressed understanding and agreement. All questions were answered. Thank you for involving us in the care of your patient. Please call with any questions. Discussed and reviewed with Dr.John Zambrano. Subjective Principal diagnosis: syncope Interval history: Patient is s/p dual chamber pacemaker yesterday. States feels well this morning. Denies complaints. Objective Vital Signs, Last 4 Hours Temp Pulse Resp BP Pulse Ox 09/06/17 07:16 98.2 F 80 16 113/56 92 General: Conversant, No Apparent Distress HEENT: Atraumatic, Normocephaly, Mucus Membranes Moist Neck: No JVD, Normal carotid pulses Cardiac: Reg Rate and Rhythm, Normal S1 and S2, No Murmur Lungs: Normal Breath Sounds, No Wheeze, Rales, Rhonchi Neuro: Alert and responsive, No focal deficits noted Abdomen: Soft, Non-Tender Skin: No rashes noted on visualized skin Musculoskeletal: No Chest Wall Tenderness, Other (Left chest wall dressing dry and intact. ) Extremities: No Clubbing, No Cyanosis, No Edema, Normal Pulses Results 09/06/17 04:20 09/06/17 04:20 Lab Results Impressions Chest X-Ray 09/05/17 15:53 IMPRESSION: Expected changes swelling interval pacemaker placement. No evident complication. D/ / Dioni Cm MD / Dioni Cm MD Interpreting Provider: Dioni Cm MD Chest X-Ray 09/06/17 06:00 IMPRESSION: Stable appearing chest with left basilar atelectasis and mild vascular congestion. D/ / Jorge Wong MD / Jorge Wong MD Interpreting Provider: Jorge Wong MD Active Medications Al Hydrox/Mg Hydrox/Simethicone (Maalox) 15 ml PO Q6HR PRN PRN Reason: Dyspepsia Stop: 03/06/18 14:21 Last Admin: 09/05/17 23:38 Dose: 15 ml Aspirin (Aspirin) 81 mg PO DAILY [facility] Stop: 03/07/18 09:01 Last Admin: 09/06/17 09:09 Dose: 81 mg Atorvastatin Calcium (Lipitor) 40 mg PO HS [facility] Stop: 03/06/18 21:01 Last Admin: 09/05/17 21:54 Dose: 40 mg Calcium Carbonate (Tums) 1,000 mg PO Q4HR PRN; Protocol PRN Reason: Heartburn Stop: 03/08/18 08:50 Magnesium Hydroxide (Milk Of Magnesia Conc) 10 ml PO DAILY PRN PRN Reason: Indigestion Stop: 03/06/18 14:21 Morphine Sulfate (Morphine Sulfate) 2 mg IVP Q4HR PRN PRN Reason: Severe Pain Stop: 03/07/18 15:54 Naloxone HCl (Narcan) 0.4 mg IVP Q2MIN PRN PRN Reason: Opioid Reversal Stop: 03/06/18 14:21 Omeprazole (Prilosec) 20 mg PO DAILY@0630 [facility] Stop: 03/08/18 09:01 Last Admin: 09/06/17 09:09 Dose: 20 mg Ondansetron HCl (Zofran) 4 mg IVP Q8HR PRN PRN Reason: Nausea And Vomiting Stop: 03/06/18 14:21 Laboratory Tests 09/06/17 09/06/17 04:20 04:20 Hgb 11.5 Creatinine 1.16 H - Imaging and Cardiology Chest Xray: report reviewed Echo: report reviewed - EKG Interpretation EKG results cardiology: other (Telemetry reviewed with average HR previous 12 hours noted to be 79, sinus rhythm. PVCs, couplets, and PACs noted.) Consult Discharge Plan - Plan Additional Instructions: Please follow up with your primary care physician within five days after your discharge from the hospital Please follow up with cardiology within one to two weeks after your discharge from the hospital. Please closely monitor your Heart rate at home. If your heart rate is less than 60, please do not take your home dose of Metoprolol. Hold metoprolol if your systolic blood pressure is less than 100. Please seek medical help if chest pain occurs. Referrals: Dawn Brown MD [Primary Care Provider] -
--- NOTE | 2017-09-06 10:11 | Discharge Summary ---
Date of Encounter: 09/06/17 Time of Encounter: 08:45 - Discharge Diagnosis (1) Heart block AV third degree Priority: Primary Status: Resolved (2) Syncope Priority: Primary Status: Resolved Qualifiers: Syncope type: unspecified Qualified Code(s): R55 - Syncope and collapse (3) Hyperlipidemia Priority: Secondary Status: Chronic Qualifiers: Hyperlipidemia type: unspecified Qualified Code(s): E78.5 - Hyperlipidemia , unspecified (4) Coronary artery disease Priority: Secondary Status: Chronic Qualifiers: Coronary Disease-Associated Artery/Lesion type: bypass graft [place] vs. transplanted heart: [place] heart Associated angina: without angina Qualified Code(s): I25.810 - Atherosclerosis of coronary artery bypass graft(s) without angina pectoris (5) DVT prophylaxis Priority: Secondary Status: Acute - Discharge Medications Home Medications: Aspirin [Adult Low Dose Aspirin EC] 81 mg PO DAILY #0 08/17/15 [History] Atorvastatin [Lipitor] 40 mg PO DAILY 08/18/15 [History] Cholecalciferol (Vitamin D3) [Vitamin D3] 1,000 unit PO DAILY 01/06/16 [History] Sennosides/Docusate Sodium [Senna Plus] 1 tab PO DAILY 01/06/16 [History] Esomeprazole Magnesium [Nexium 24Hr] 20 mg PO DAILY 09/04/17 [History] Metoprolol [Lopressor] 25 mg PO BID 09/04/17 [History] Allergies/Adverse Reactions: 3 Allergy/AdvReac Type Severity Reaction Status Date / Time acetaminophen [From Tylenol] AdvReac Unconscious Verified 09/04/17 13:45 Procedures/tests Complete & Pending: Procedures Performed prior 72 hours Category Date Time Status CL Insert Permanent Pacemaker [CL] Routine Student Education Specialist 09/05/17 14:43 Completed ECG 12 lead ECG [ECG] Routine Y 09/04/17 12:22 Completed EV echocardiogram Routine Y 09/04/17 15:24 Completed Date of admission: 09/04/17 13:36 Primary care physician: Dawn Brown MD Consults: 09/05/17 11:57 Consult to Electrophysiology (EP) [CONS] Routine Consulting Provider: Electrophysiology Emmie Reason for Consult: intermittent complete heart block Call Completed: Yes Discharging clinician: Cary Klein Anticipated date of discharge: 09/06/17 - Patient Status Disposition: Home, Self-Care Condition: Good Functional capacity at discharge: uses cane/walker Overall status at discharge: patient is back to baseline - Discharge Instructions Follow Up With: Dawn Brown MD [Primary Care Provider] - Additional Instructions: Please follow up with your primary care physician within five days after your discharge from the hospital Please follow up with cardiology within one to two weeks after your discharge from the hospital. Please closely monitor your Heart rate at home. If your heart rate is less than 60, please do not take your home dose of Metoprolol. Hold metoprolol if your systolic blood pressure is less than 100. Please seek medical help if chest pain occurs. - Diet and Activity Activity: resume usual activities as tolerated Diet: low fat, low cholesterol, low salt diet Hospital course: Ms. Ojeda is a 82 year old female with PMH of CAD, HTN, HLD admitted for syncope secondary to third degree AV block. Cardiology was consulted. Pt underwent PPM placement. Pt tolerated the procedure well. her pacemaker was evaluated by cardiology and she was restarted on her home dose of BB. At this time, patient is hemodynamically stable and will be discharged to home. She reports of living alone and having family help. She refused home health services. - Time Spent with Patient Total time spent providing and/or coordinating discharge services: Less than 30 minutes - Constitutional Vitals: Temp Pulse Resp BP Pulse Ox 98.2 F 80 16 113/56 92 09/06/17 07:16 09/06/17 07:16 09/06/17 07:16 09/06/17 07:16 09/06/17 07:16 General appearance: Present: A&O X 3, pleasant, no acute distress, obese, answers questions appropriately - Head Head exam: Present: atraumatic, normocephalic - Eye Eye exam: Present: conjuntiva pink, sclera anicteric - Respiratory Respiratory exam: Present: CTAB. Absent: accessory muscle use, rales, rhonchi, wheezes - Cardiovascular Cardiovascular exam: Present: RRR, +S1, +S2. Absent: diastolic murmur, gallop, rubs, systolic murmur - GI/Abdominal GI/Abdominal exam: Present: normal bowel sounds, soft, no peritoneal signs. Absent: distended, tenderness - Extremities Exam Extremities exam: Present: warm, radial pulses palpable and symmetrical. Absent : calf tenderness - Neurological Exam Neurological exam: Present: alert, oriented X3
[2017-09-06 11:12] VITALS: BP 139/77
== END 2017-09-06 12:15 | disposition home or self-care (01) ==
LOC: EMEROO 11:59 → 3BNU 11:59 → SUATTDRO 13:36 → 3BNU 14:07
PROVIDERS: ADMIT Registered Nurse; ATTEND Internal Medicine

== ENCOUNTER 2019-08-27 08:53 | Observation (INO) ==
[2019-08-27] MEDS ORDERED: Aspirin 81 MG TAB.CHEW PO ONE (09:04)
[2019-08-27 09:52] LABS: Basophils # 0.1 K/mcL (0.0-0.2); Basophils % 0.3 %; Eosinophils % 0.2 %; Hematocrit 47.5 % (35.3-44.9); Immature Granulocytes % 0.5 % (0-4); Lymphocytes # 1.3 K/mcL (0.6-4.6); Mean Corpuscular HGB Conc 31.6 g/dL (31.6-35.5); Mean Corpuscular Hemoglobin 26.1 pg (28.0-33.3); Mean Corpuscular Volume 82.8 fL (83.0-100.0); Mean Platelet Volume 10.4 fL (9.4-12.4); Monocytes # 1.3 K/mcL (0.0-1.3); Monocytes % 7.6 %; Neutrophils # 13.8 K/mcL (1.6-8.9); Platelet Count 478 K/mcL (140-400); Red Blood Count 5.74 M/mcL (3.82-4.97); Red Cell Distribution Width 19.4 % (11.5-14.5); Segmented Neutrophils % 83.4 %
[2019-08-27 09:54] LABS: White Blood Count 16.5 K/mcL (4.3-11.1)
[2019-08-27 09:57] LABS: Prothrombin Time 11.5 Seconds (9.4-12.1)
[2019-08-27 10:00] LABS: Activated Partial Thrombo Time 52.3 Seconds (26.0-36.0)
[2019-08-27 10:14] LABS: BUN/Creatinine Ratio 22 (6-26); Blood Urea Nitrogen 23 mg/dL (8-23); Calcium 9.2 mg/dL (8.6-10.3); Carbon Dioxide 22 mEq/L (23-29); Chloride 102 mEq/L (98-107); Glucose 124 mg/dL (70-105); Osmolality,Calculated 287 (280-300); Potassium 4.6 mEq/L (3.5-5.1); Sodium 136 mEq/L (136-145); Troponin I 0.03 ng/mL (< 0.04); eGFR For African Americans > 60 (> 60); eGFR For Non-African Americans 51 (> 60)
[2019-08-27] MEDS ORDERED: Acetaminophen 325 MG TABLET PO PRN (11:01)
[2019-08-27] MEDS ORDERED: Naloxone 0.4 MG/ML INJ IVP PRN (11:01)
[2019-08-27] MEDS ORDERED: Ondansetron 4 MG/2 ML VIAL IVP PRN (11:01)
[2019-08-27] MEDS ORDERED: Nitroglycerin 0.4 MG TAB.SUBL SL PRN (11:06)
[2019-08-27] MEDS: *HR* Heparin 5,000 UNIT/ML VIAL SQ SCH ×2 (15:52→22:09)
[2019-08-27] MEDS ORDERED: rOPINIRole 0.25 MG TABLET PO SCH (21:00)
[2019-08-27] MEDS ORDERED: Famotidine 20 MG TABLET PO SCH (21:00)
[2019-08-27] MEDS ORDERED: traZODone 50 MG TABLET PO SCH (21:00)
[2019-08-28 01:34] LABS: Hematocrit 42.9 % (35.3-44.9); Hemoglobin 13.8 g/dL (11.5-15.4); Mean Corpuscular HGB Conc 32.2 g/dL (31.6-35.5); Mean Corpuscular Volume 80.9 fL (83.0-100.0); Mean Platelet Volume 10.4 fL (9.4-12.4); Platelet Count 415 K/mcL (140-400); Red Cell Distribution Width 18.9 % (11.5-14.5); White Blood Count 9.2 K/mcL (4.3-11.1)
[2019-08-28 01:54] LABS: BUN/Creatinine Ratio 24 (6-26); Blood Urea Nitrogen 25 mg/dL (8-23); Calcium 8.6 mg/dL (8.6-10.3); Carbon Dioxide 22 mEq/L (23-29); Chloride 106 mEq/L (98-107); Glucose 115 mg/dL (70-105); Osmolality,Calculated 291 (280-300); Potassium 4.2 mEq/L (3.5-5.1); Sodium 138 mEq/L (136-145); eGFR For African Americans > 60 (> 60); eGFR For Non-African Americans 50 (> 60)
[2019-08-28 01:56] LABS: Troponin I < 0.03 ng/mL (< 0.04)
[2019-08-28] MEDS: *HR* Heparin 5,000 UNIT/ML VIAL SQ SCH (05:25)
[2019-08-28 07:32] VITALS: BP 146/81
[2019-08-28] MEDS ORDERED: Aspirin Enteric Coated 81 MG Tablet PO SCH (09:00)
== END 2019-08-28 11:51 | disposition home or self-care (01) ==
LOC: EMEROOARM 08:53 → 2NENU 08:53 → SUATTDRO 10:59 → 2NENU 11:45
PROVIDERS: ADMIT Student in an Organized Health Care Education/Training Program; ATTEND Family Medicine

== ENCOUNTER 2020-06-22 10:42 | Observation (INO) ==
[2020-06-22 11:31] LABS: Amphetamine Screen,Urine Negative ng/mL (Cutoff=1000); Barbiturate Screen,Urine Negative ng/mL (Cutoff=200); Benzodiazepines Screen,Urine Negative ng/mL (Cutoff=200); Cannabinoid Screen,Urine Negative ng/mL (Cutoff = 50); Cocaine Screen,Urine Negative ng/mL (Cutoff= 300); Opiate Screen,Urine Negative ng/mL (Cutoff=300); Phencyclidine Screen,Urine Negative ng/mL (Cutoff=25)
[2020-06-22 11:32] LABS: Prothrombin Time 11.3 Seconds (9.4-12.1)
[2020-06-22 11:35] LABS: Activated Partial Thrombo Time 56.3 Seconds (26.0-36.0); Basophils # 0.1 K/mcL (0.0-0.2); Basophils % 0.6 %; Eosinophils # 0.2 K/mcL (0.0-0.6); Eosinophils % 1.9 %; Hematocrit 46.2 % (35.3-44.9); Hemoglobin 13.9 g/dL (11.5-15.4); Immature Granulocytes % 0.3 % (0-4); Lymphocytes # 1.8 K/mcL (0.6-4.6); Lymphocytes % 16.5 %; Mean Corpuscular HGB Conc 30.1 g/dL (31.6-35.5); Mean Corpuscular Hemoglobin 24.5 pg (28.0-33.3); Mean Corpuscular Volume 81.3 fL (83.0-100.0); Mean Platelet Volume 10.9 fL (9.4-12.4); Monocytes # 0.8 K/mcL (0.0-1.3); Monocytes % 7.2 %; Neutrophils # 7.8 K/mcL (1.6-8.9); Platelet Count 555 K/mcL (140-400); Red Blood Count 5.68 M/mcL (3.82-4.97); Red Cell Distribution Width 16.8 % (11.5-14.5); Segmented Neutrophils % 73.5 %; White Blood Count 10.6 K/mcL (4.3-11.1)
[2020-06-22 11:48] LABS: Alanine Aminotransferase 10 Units/L (7-52); Albumin 4.3 g/dL (3.5-5.7); Albumin/Globulin Ratio 1.4 (1.1-2.2); Alkaline Phosphatase 55 Units/L (34-104); Aspartate Amino Transferase 14 Units/L (13-39); BUN/Creatinine Ratio 15 (6-26); Bilirubin,Direct 0.1 mg/dL (0.0-0.2); Bilirubin,Indirect 0.3 mg/dL (0.0-1.0); Bilirubin,Total 0.4 mg/dL (0.3-1.0); Blood Urea Nitrogen 20 mg/dL (8-23); Calcium 9.2 mg/dL (8.6-10.3); Carbon Dioxide 23 mEq/L (23-29); Chloride 107 mEq/L (98-107); Ethanol < 10 mg/dL (Less than 10); Glucose 98 mg/dL (70-105); Osmolality,Calculated 291 (280-300); Potassium 4.4 mEq/L (3.5-5.1); Sodium 139 mEq/L (136-145); Total Protein 7.3 g/dL (6.4-8.9); Troponin I < 0.03 ng/mL (< 0.04); eGFR For African Americans 47 (> 60); eGFR For Non-African Americans 38 (> 60)
[2020-06-22 12:01] LABS: Thyroid Stimulating Hormone 4.001 mcIU/mL (0.340-5.600)
[2020-06-22 13:11] LABS: Bilirubin,Urine Negative (Negative); Blood,Urine Negative (Negative); Clarity,Urine Clear (Clear); Color,Urine Light-Yellow (Yellow); Glucose,Urine (UA) Normal (Normal); Ketones,Urine Negative (Negative); Leukocyte Esterase,Urine Negative (Negative); Nitrite,Urine Negative (Negative); PH,Urine 5.5 pH Units (5.0-8.0); Protein,Urine Negative (Neg-Trace); Specific Gravity,Urine 1.019 (1.010-1.025); Urobilinogen,Urine Normal (Normal)
[2020-06-22] MEDS ORDERED: Naloxone 0.4 MG/ML INJ IVP PRN (14:26)
[2020-06-22] MEDS ORDERED: *HR* Promethazine 25 MG/ML VIAL IVP PRN (14:26)
[2020-06-22] MEDS ORDERED: MOM Conc 10 ML UD.LIQ PO PRN (14:26)
[2020-06-22] MEDS ORDERED: Acetaminophen 325 MG TABLET PO PRN (14:26)
[2020-06-22] MEDS ORDERED: Ringers Solution, Lactated 1,000 ML IVC SCH (14:45)
[2020-06-22 16:32] LABS: VBG HCO3 26 mEq/L (21-27); VBG PCO2 47 mmHg (41-51); VBG PH 7.35 pH Units (7.32-7.42); VBG PO2 44 mmHg (25-50)
[2020-06-23 01:44] LABS: Basophils # 0.1 K/mcL (0.0-0.2); Basophils % 0.6 %; Eosinophils # 0.3 K/mcL (0.0-0.6); Eosinophils % 3.1 %; Hematocrit 41.8 % (35.3-44.9); Hemoglobin 12.7 g/dL (11.5-15.4); Immature Granulocytes % 0.5 % (0-4); Lymphocytes # 2.1 K/mcL (0.6-4.6); Lymphocytes % 20.6 %; Mean Corpuscular HGB Conc 30.4 g/dL (31.6-35.5); Mean Corpuscular Hemoglobin 24.4 pg (28.0-33.3); Mean Corpuscular Volume 80.2 fL (83.0-100.0); Mean Platelet Volume 10.7 fL (9.4-12.4); Monocytes # 0.9 K/mcL (0.0-1.3); Monocytes % 8.6 %; Neutrophils # 6.7 K/mcL (1.6-8.9); Platelet Count 487 K/mcL (140-400); Red Blood Count 5.21 M/mcL (3.82-4.97); Red Cell Distribution Width 16.5 % (11.5-14.5); Segmented Neutrophils % 66.6 %
[2020-06-23 02:06] LABS: Calcium 8.7 mg/dL (8.6-10.3); Magnesium 1.9 mg/dL (1.6-2.6); Phosphorous 3.7 mg/dL (2.7-4.5); Potassium 3.9 mEq/L (3.5-5.1)
[2020-06-23 02:29] LABS: Folate 10.8 ng/mL (3.0-16.0)
[2020-06-23] MEDS ORDERED: Aspirin Enteric Coated 81 MG Tablet PO SCH (09:00)
[2020-06-23] MEDS ORDERED: Cyanocobalamin (B-12) 1,000 MCG TABLET PO SCH (09:00)
[2020-06-23 11:14] VITALS: BP 160/61
== END 2020-06-23 12:38 | disposition home or self-care (01) ==
LOC: EMEROOARM 10:42 → 2ANU 10:42 → SUATTDRO 14:01 → 2ANU 14:35
PROVIDERS: ADMIT Internal Medicine; ATTEND Internal Medicine

== ENCOUNTER 2021-08-22 11:12 | Inpatient (IN) ==
[2021-08-22 13:00] LABS: Hematocrit 48.2 % (35.3-44.9); Hemoglobin 14.7 g/dL (11.5-15.4); Mean Corpuscular HGB Conc 30.5 g/dL (31.6-35.5); Mean Corpuscular Hemoglobin 23.2 pg (28.0-33.3); Mean Corpuscular Volume 76.1 fL (83.0-100.0); Mean Platelet Volume 9.7 fL (9.4-12.4); Platelet Count 299 K/mcL (140-400); Red Blood Count 6.33 M/mcL (3.82-4.97); Red Cell Distribution Width 18.7 % (11.5-14.5); White Blood Count 4.9 K/mcL (4.3-11.1)
[2021-08-22 14:27] LABS: Bacteria,Urine Few per hpf (None-Few); Bilirubin,Urine Negative (Negative); Blood,Urine Negative (Negative); Clarity,Urine Turbid (Clear); Color,Urine Yellow (Yellow); Glucose,Urine (UA) Normal (Normal); Hyaline Casts,Urine Few per lpf (None Seen); Ketones,Urine Trace mg/dL (Negative); Leukocyte Esterase,Urine Moderate (Negative); Mucus,Urine Few per lpf (None-Few); Nitrite,Urine Positive (Negative); Protein,Urine 30 mg/dL (Neg-Trace); RBC,Urine 0-3 per hpf (0-3); Specific Gravity,Urine 1.015 (1.010-1.025); Squamous Epithelial Cell,Urine Moderate per hpf (None-Few); Urobilinogen,Urine Normal (Normal); WBC,Urine 15-30 per hpf (0-3)
[2021-08-22 14:31] LABS: Albumin 3.5 g/dL (3.5-5.7); Albumin/Globulin Ratio 1.3 (1.1-2.2); Bilirubin,Direct 0.1 mg/dL (0.0-0.2); Bilirubin,Indirect 0.2 mg/dL (0.0-1.0); Bilirubin,Total 0.3 mg/dL (0.3-1.0); Calcium 8.2 mg/dL (8.6-10.3); Globulin 2.7 g/dL (2.4-3.5); Potassium 5.1 mEq/L (3.5-5.1); Total Protein 6.2 g/dL (6.4-8.9); Troponin I 0.03 ng/mL (< 0.04)
[2021-08-22] MEDS ORDERED: cefTRIAXone 1,000 MG in Water for inj. (sterile) 10 ML IVP ONE (15:09)
[2021-08-22 15:44] LABS: Influenza A PCR Negative (Negative); Influenza B PCR Negative (Negative); Resp. Syncytial Virus PCR Negative (Negative)
[2021-08-22 15:55] LABS: SARS-CoV-2 by PCR (In House) Positive (Negative)
[2021-08-22 17:16] LABS: Basophils % 0.2 %; Hematocrit 47.5 % (35.3-44.9); Hemoglobin 14.7 g/dL (11.5-15.4); Immature Granulocytes % 0.7 % (0-4); Lymphocytes # 0.7 K/mcL (0.6-4.6); Lymphocytes % 16.6 %; Mean Corpuscular HGB Conc 30.9 g/dL (31.6-35.5); Mean Corpuscular Hemoglobin 23.6 pg (28.0-33.3); Mean Corpuscular Volume 76.4 fL (83.0-100.0); Mean Platelet Volume 10.3 fL (9.4-12.4); Monocytes # 0.6 K/mcL (0.0-1.3); Monocytes % 13.3 %; Neutrophils # 3.1 K/mcL (1.6-8.9); Platelet Count 285 K/mcL (140-400); Red Blood Count 6.22 M/mcL (3.82-4.97); Red Cell Distribution Width 18.9 % (11.5-14.5); Segmented Neutrophils % 69.2 %; White Blood Count 4.5 K/mcL (4.3-11.1)
[2021-08-22 17:37] LABS: Albumin 3.3 g/dL (3.5-5.7); Albumin/Globulin Ratio 1.2 (1.1-2.2); Bilirubin,Total 0.3 mg/dL (0.3-1.0); Globulin 2.7 g/dL (2.4-3.5); Potassium 4.4 mEq/L (3.5-5.1)
[2021-08-22] MEDS: 0.9 % Sodium Chloride 1,000 ML IVC SCH (21:05)
[2021-08-22] MEDS: Azithromycin 500 MG in 0.9 % Sodium Chloride 250 ML IVPB SCH (21:06)
[2021-08-22] MEDS: Dexamethasone Sodium Phos/PF 10 MG/ML VIAL IVP SCH (21:12)
[2021-08-22] MEDS: *HR* Heparin 5,000 UNIT/ML VIAL SQ SCH ×2 (21:13→22:06)
[2021-08-23] MEDS: *HR* Heparin 5,000 UNIT/ML VIAL SQ SCH ×3 (06:10→20:38)
[2021-08-23] MEDS: Dexamethasone Sodium Phos/PF 10 MG/ML VIAL IVP SCH (08:17)
[2021-08-23] MEDS: cefTRIAXone 1,000 MG in 0.9 % Sodium Chloride Mini Bag 100 ML IVPB SCH (08:17)
[2021-08-23] MEDS: rOPINIRole 0.25 MG TABLET PO SCH ×2 (09:58→20:37)
[2021-08-23 13:29] LABS: Hematocrit 47.4 % (35.3-44.9); Hemoglobin 14.9 g/dL (11.5-15.4); Immature Granulocytes % 0.6 % (0-4); Lymphocytes # 0.5 K/mcL (0.6-4.6); Lymphocytes % 14.5 %; Mean Corpuscular HGB Conc 31.4 g/dL (31.6-35.5); Mean Corpuscular Hemoglobin 23.7 pg (28.0-33.3); Mean Corpuscular Volume 75.4 fL (83.0-100.0); Mean Platelet Volume 10.7 fL (9.4-12.4); Monocytes # 0.2 K/mcL (0.0-1.3); Monocytes % 5.8 %; Neutrophils # 2.5 K/mcL (1.6-8.9); Platelet Count 318 K/mcL (140-400); Red Blood Count 6.29 M/mcL (3.82-4.97); Segmented Neutrophils % 79.1 %; White Blood Count 3.1 K/mcL (4.3-11.1)
[2021-08-23 13:44] LABS: Potassium 4.4 mEq/L (3.5-5.1)
[2021-08-23] MEDS: 0.9 % Sodium Chloride 1,000 ML IVC SCH ×2 (17:07→20:37)
[2021-08-23] MEDS: Azithromycin 500 MG in 0.9 % Sodium Chloride 250 ML IVPB SCH (17:13)
[2021-08-23] MEDS ORDERED: traZODone 50 MG TABLET PO SCH (21:00)
[2021-08-24 00:49] LABS: Basophils % 0.3 %; Hematocrit 45.2 % (35.3-44.9); Hemoglobin 13.8 g/dL (11.5-15.4); Lymphocytes # 0.6 K/mcL (0.6-4.6); Lymphocytes % 15.1 %; Mean Corpuscular HGB Conc 30.5 g/dL (31.6-35.5); Mean Corpuscular Hemoglobin 23.8 pg (28.0-33.3); Mean Corpuscular Volume 77.9 fL (83.0-100.0); Mean Platelet Volume 9.7 fL (9.4-12.4); Monocytes # 0.4 K/mcL (0.0-1.3); Monocytes % 10.2 %; Neutrophils # 2.8 K/mcL (1.6-8.9); Platelet Count 289 K/mcL (140-400); Red Cell Distribution Width 19.3 % (11.5-14.5); Segmented Neutrophils % 73.4 %; White Blood Count 3.8 K/mcL (4.3-11.1)
[2021-08-24 01:10] LABS: Calcium 7.5 mg/dL (8.6-10.3)
[2021-08-24] MEDS: 0.9 % Sodium Chloride 1,000 ML IVC SCH (05:41)
[2021-08-24] MEDS: *HR* Heparin 5,000 UNIT/ML VIAL SQ SCH (05:41)
[2021-08-24 07:08] VITALS: BP 123/70; PULSE 61; TEMP 98.8; O2SAT 92
[2021-08-24] MEDS: Dexamethasone Sodium Phos/PF 10 MG/ML VIAL IVP SCH (08:49)
[2021-08-24] MEDS: cefTRIAXone 1,000 MG in 0.9 % Sodium Chloride Mini Bag 100 ML IVPB SCH (08:53)
[2021-08-24] MEDS: rOPINIRole 0.25 MG TABLET PO SCH (09:00)
[2021-08-24] MEDS ORDERED: Aspirin Enteric Coated 81 MG Tablet PO SCH (09:00)
[2021-08-24] MEDS ORDERED: NON-FORMULARY MEDICATION 1 EACH EACH (Pantoprazole Sodium [Protonix] 40 MG Tablet.Dr) PO SCH (09:00)
== END 2021-08-24 11:25 | disposition home health service (06) | DRG 177 ==
LOC: EMEROOARM 11:12 → 2NENU 18:15
PROVIDERS: ADMIT Student in an Organized Health Care Education/Training Program; ATTEND Student in an Organized Health Care Education/Training Program

== ENCOUNTER 2021-08-28 00:47 | Inpatient (IN) ==
[2021-08-28] MEDS ORDERED: Metoclopramide 10 MG/2 ML VIAL IVP ONE (01:22)
[2021-08-28 01:51] LABS: Mean Corpuscular HGB Conc 30.6 g/dL (31.6-35.5); Mean Corpuscular Volume 75.9 fL (83.0-100.0); Red Cell Distribution Width 19.9 % (11.5-14.5)
[2021-08-28 01:53] LABS: Basophils % 0.2 %; Hemoglobin 17.3 g/dL (11.5-15.4); Immature Granulocytes % 0.8 % (0-4); Immature Platelets 8.8 % (1.1-6.1); Lymphocytes # 0.4 K/mcL (0.6-4.6); Mean Corpuscular Hemoglobin 23.2 pg (28.0-33.3); Monocytes # 0.9 K/mcL (0.0-1.3); Monocytes % 6.6 %; Neutrophils # 11.7 K/mcL (1.6-8.9); Platelet Count 301 K/mcL (140-400); Red Blood Count 7.46 M/mcL (3.82-4.97); Segmented Neutrophils % 89.4 %; White Blood Count 13.1 K/mcL (4.3-11.1)
[2021-08-28 01:58] LABS: Hematocrit 56.6 % (35.3-44.9)
[2021-08-28 01:59] LABS: Albumin 3.7 g/dL (3.5-5.7); Albumin/Globulin Ratio 1.2 (1.1-2.2); Bilirubin,Direct 0.2 mg/dL (0.0-0.2); Bilirubin,Indirect 0.5 mg/dL (0.0-1.0); Bilirubin,Total 0.7 mg/dL (0.3-1.0); Calcium 9.1 mg/dL (8.6-10.3); Globulin 3.2 g/dL (2.4-3.5); Potassium 4.4 mEq/L (3.5-5.1); Total Protein 6.9 g/dL (6.4-8.9)
[2021-08-28] MEDS ORDERED: 0.9 % Sodium Chloride 1,000 ML IV ONE (02:01)
[2021-08-28 02:40] LABS: Troponin I 0.05 ng/mL (< 0.04)
[2021-08-28 03:00] LABS: ABG Base Excess -6 mEq/L (-2 to 3); ABG HCO3 16 mEq/L (21-27); ABG Oxygen Saturation 91 % (95-98); ABG PCO2 22 mmHg (35-45); ABG PH 7.46 pH Units (7.32-7.45); ABG PO2 56 mmHg (85-104); ABG TCO2 16 mEq/L (20-26)
[2021-08-28 03:03] LABS: INR 1.3
[2021-08-28 03:06] LABS: Activated Partial Thrombo Time 37.4 Seconds (26.0-36.0)
[2021-08-28] MEDS ORDERED: Furosemide 20 MG/2 ML VIAL IVP ONE (03:43)
[2021-08-28 04:33] LABS: Bilirubin,Urine Negative (Negative); Blood,Urine Negative (Negative); Clarity,Urine Clear (Clear); Color,Urine Yellow (Yellow); Glucose,Urine (UA) Normal (Normal); Hyaline Casts,Urine Few per lpf (None Seen); Ketones,Urine Trace mg/dL (Negative); Leukocyte Esterase,Urine Negative (Negative); Mucus,Urine Few per lpf (None-Few); Nitrite,Urine Negative (Negative); PH,Urine 5.5 pH Units (5.0-8.0); Protein,Urine 50 mg/dL (Neg-Trace); RBC,Urine 0-3 per hpf (0-3); Specific Gravity,Urine 1.023 (1.010-1.025); Squamous Epithelial Cell,Urine Few per hpf (None-Few); Urobilinogen,Urine Normal (Normal); WBC,Urine 0-3 per hpf (0-3)
[2021-08-28] MEDS ORDERED: Naloxone 0.4 MG/ML INJ IVP PRN (04:34)
[2021-08-28] MEDS ORDERED: Ondansetron 4 MG/2 ML VIAL IVP PRN (04:34)
[2021-08-28] MEDS ORDERED: cefTRIAXone 1,000 MG in 0.9 % Sodium Chloride Mini Bag 100 ML IVPB SCH (05:00)
[2021-08-28] MEDS: Azithromycin 500 MG in 0.9 % Sodium Chloride 250 ML IVPB SCH (05:33)
[2021-08-28] MEDS ORDERED: *HR* Heparin 5,000 UNIT/ML VIAL IVP PRN ×2 (05:43)
[2021-08-28] MEDS ORDERED: *HR* Heparin 5,000 UNIT/ML VIAL IVP ONE (05:43)
[2021-08-28] MEDS ORDERED: Ipratropium 1 PUFF INHALER IH PRN (05:48)
[2021-08-28] MEDS ORDERED: Acetaminophen 325 MG TABLET PO PRN (06:00)
[2021-08-28] MEDS: Heparin 25,000UNIT/250ML 1/2NS 25,000 UNIT/250 ML IV.SOLN IVC SCH (06:00)
[2021-08-28] MEDS ORDERED: *HR* Metoprolol 5 MG/5 ML VIAL IVP SCH (06:00)
[2021-08-28] MEDS ORDERED: *HR* Metoprolol 5 MG/5 ML VIAL IVP ONE (06:00)
[2021-08-28] MEDS ORDERED: 0.9 % Sodium Chloride 1,000 ML IVC SCH (06:15)
[2021-08-28] MEDS ORDERED: Acetaminophen 650 MG RECTAL SUPP RC PRN (06:46)
[2021-08-28 07:36] LABS: Heparin anti-factor XA UFH 0.15 IU/mL (0.30-0.70); INR 1.1; Prothrombin Time 12.8 Seconds (9.4-12.1)
[2021-08-28 07:56] LABS: Activated Partial Thrombo Time 73.4 Seconds (26.0-36.0)
[2021-08-28 09:55] LABS: Red Cell Distribution Width 19.1 % (11.5-14.5)
[2021-08-28 09:57] LABS: Hematocrit 46.7 % (35.3-44.9); Hemoglobin 14.7 g/dL (11.5-15.4); Immature Platelets 7.7 % (1.1-6.1); Mean Corpuscular HGB Conc 31.5 g/dL (31.6-35.5); Mean Corpuscular Hemoglobin 23.7 pg (28.0-33.3); Mean Corpuscular Volume 75.3 fL (83.0-100.0); Mean Platelet Volume 10.9 fL (9.4-12.4); Red Blood Count 6.2 M/mcL (3.82-4.97); White Blood Count 13.4 K/mcL (4.3-11.1)
[2021-08-28 10:19] LABS: Troponin I 0.06 ng/mL (< 0.04)
[2021-08-28 10:20] LABS: Calcium 7.7 mg/dL (8.6-10.3); Potassium 3.9 mEq/L (3.5-5.1)
[2021-08-28] MEDS ORDERED: Perflutren Lipid Microsphere 1.3 ML in 0.9 % Sodium Chloride 8.7 ML IVP PRN (11:57)
[2021-08-28 12:14] LABS: Influenza A PCR Negative (Negative); Influenza B PCR Negative (Negative); Resp. Syncytial Virus PCR Negative (Negative)
[2021-08-28 12:47] LABS: SARS-CoV-2 by PCR (In House) Positive (Negative)
[2021-08-28] MEDS: Metoprolol XL (24 HR) Succ 50 MG TAB.ER.24H PO SCH (14:12)
[2021-08-28] MEDS: Aspirin Enteric Coated 81 MG Tablet PO SCH (14:12)
[2021-08-28] MEDS ORDERED: Dexamethasone Sodium Phos/PF 10 MG/ML VIAL IVP ONE (16:33)
[2021-08-28] MEDS: cefTRIAXone 2,000 MG in Water for inj. (sterile) 20 ML IVP SCH (16:58)
[2021-08-28 17:48] LABS: Troponin I 0.05 ng/mL (< 0.04)
[2021-08-28 19:21] LABS: Thyroid Stimulating Hormone 0.824 mcIU/mL (0.340-5.600)
[2021-08-28] MEDS: traZODone 50 MG TABLET PO SCH (19:41)
[2021-08-28] MEDS: rOPINIRole 0.25 MG TABLET PO SCH (19:41)
[2021-08-29 02:14] LABS: Basophils % 0.1 %; Hematocrit 43.3 % (35.3-44.9); Hemoglobin 13.6 g/dL (11.5-15.4); Immature Granulocytes % 0.9 % (0-4); Immature Platelets 9.6 % (1.1-6.1); Lymphocytes # 0.5 K/mcL (0.6-4.6); Lymphocytes % 3.9 %; Mean Corpuscular HGB Conc 31.4 g/dL (31.6-35.5); Mean Corpuscular Hemoglobin 23.7 pg (28.0-33.3); Mean Corpuscular Volume 75.3 fL (83.0-100.0); Monocytes # 0.5 K/mcL (0.0-1.3); Monocytes % 3.9 %; Neutrophils # 10.6 K/mcL (1.6-8.9); Platelet Count 220 K/mcL (140-400); Red Blood Count 5.75 M/mcL (3.82-4.97); Red Cell Distribution Width 18.6 % (11.5-14.5); Segmented Neutrophils % 91.2 %; White Blood Count 11.6 K/mcL (4.3-11.1)
[2021-08-29 02:29] LABS: Calcium 7.8 mg/dL (8.6-10.3); Magnesium 2.1 mg/dL (1.6-2.6); Phosphorous 3.7 mg/dL (2.7-4.5); Potassium 4.1 mEq/L (3.5-5.1)
[2021-08-29] MEDS: Azithromycin 500 MG in 0.9 % Sodium Chloride 250 ML IVPB SCH (04:27)
[2021-08-29] MEDS: Dexamethasone Sodium Phos/PF 10 MG/ML VIAL IVP SCH (07:44)
[2021-08-29] MEDS: Aspirin Enteric Coated 81 MG Tablet PO SCH (07:44)
[2021-08-29] MEDS: rOPINIRole 0.25 MG TABLET PO SCH ×2 (07:44→20:55)
[2021-08-29] MEDS: Metoprolol XL (24 HR) Succ 50 MG TAB.ER.24H PO SCH (07:44)
[2021-08-29] MEDS ORDERED: Haloperidol Lactate 5 MG/ML VIAL IVP PRN (08:55)
[2021-08-29] MEDS ORDERED: Dexamethasone Sodium Phos/PF 10 MG/ML VIAL IVP SCH (09:00)
[2021-08-29] MEDS: cefTRIAXone 2,000 MG in Water for inj. (sterile) 20 ML IVP SCH (16:10)
[2021-08-29] MEDS ORDERED: Furosemide 20 MG/2 ML VIAL IVP ONE (17:00)
[2021-08-29] MEDS: traZODone 50 MG TABLET PO SCH (20:55)
[2021-08-29] MEDS: Heparin 25,000UNIT/250ML 1/2NS 25,000 UNIT/250 ML IV.SOLN IVC SCH (23:14)
[2021-08-30 02:16] LABS: Lymphocytes % 2.6 %
[2021-08-30 02:18] LABS: Basophils % 0.2 %; Hematocrit 46.8 % (35.3-44.9); Hemoglobin 14.4 g/dL (11.5-15.4); Immature Granulocytes % 1.4 % (0-4); Immature Platelets 9.8 % (1.1-6.1); Lymphocytes # 0.5 K/mcL (0.6-4.6); Mean Corpuscular HGB Conc 30.8 g/dL (31.6-35.5); Mean Corpuscular Hemoglobin 23.1 pg (28.0-33.3); Monocytes # 0.9 K/mcL (0.0-1.3); Monocytes % 4.7 %; Neutrophils # 16.7 K/mcL (1.6-8.9); Platelet Count 274 K/mcL (140-400); Red Blood Count 6.24 M/mcL (3.82-4.97); Red Cell Distribution Width 19.5 % (11.5-14.5); Segmented Neutrophils % 91.1 %; White Blood Count 18.3 K/mcL (4.3-11.1)
[2021-08-30 02:33] LABS: Calcium 8.1 mg/dL (8.6-10.3); Potassium 4.2 mEq/L (3.5-5.1)
[2021-08-30] MEDS: Azithromycin 500 MG in 0.9 % Sodium Chloride 250 ML IVPB SCH (04:05)
[2021-08-30] MEDS: *HR* Metoprolol 5 MG/5 ML VIAL IVP PRN ×2 (04:53→11:06)
[2021-08-30] MEDS: rOPINIRole 0.25 MG TABLET PO SCH ×2 (08:19→20:04)
[2021-08-30] MEDS: Dexamethasone Sodium Phos/PF 10 MG/ML VIAL IVP SCH (08:19)
[2021-08-30] MEDS: Aspirin Enteric Coated 81 MG Tablet PO SCH (08:20)
[2021-08-30] MEDS: Metoprolol XL (24 HR) Succ 50 MG TAB.ER.24H PO SCH (08:20)
[2021-08-30] MEDS ORDERED: NON-FORMULARY MEDICATION 1 EACH EACH (Atorvastatin Calcium [Lipitor] 80 MG Tablet) PO SCH (09:00)
[2021-08-30] MEDS: cefTRIAXone 2,000 MG in Water for inj. (sterile) 20 ML IVP SCH (15:08)
[2021-08-30] MEDS: traZODone 50 MG TABLET PO SCH (20:04)
[2021-08-31 03:20] LABS: Basophils % 0.1 %; Hematocrit 44.8 % (35.3-44.9); Hemoglobin 14.4 g/dL (11.5-15.4); Immature Granulocytes % 1.6 % (0-4); Lymphocytes # 0.4 K/mcL (0.6-4.6); Lymphocytes % 2.5 %; Mean Corpuscular HGB Conc 32.1 g/dL (31.6-35.5); Mean Corpuscular Hemoglobin 24.1 pg (28.0-33.3); Mean Corpuscular Volume 74.9 fL (83.0-100.0); Monocytes # 0.8 K/mcL (0.0-1.3); Monocytes % 4.6 %; Neutrophils # 15.6 K/mcL (1.6-8.9); Platelet Count 328 K/mcL (140-400); Red Blood Count 5.98 M/mcL (3.82-4.97); Red Cell Distribution Width 19.6 % (11.5-14.5); Segmented Neutrophils % 91.2 %; White Blood Count 17.1 K/mcL (4.3-11.1)
[2021-08-31 03:36] LABS: Calcium 8.2 mg/dL (8.6-10.3); Potassium 4.4 mEq/L (3.5-5.1)
[2021-08-31] MEDS: Azithromycin 500 MG in 0.9 % Sodium Chloride 250 ML IVPB SCH (05:21)
[2021-08-31] MEDS: Heparin 25,000UNIT/250ML 1/2NS 25,000 UNIT/250 ML IV.SOLN IVC SCH (05:22)
[2021-08-31] MEDS: Metoprolol XL (24 HR) Succ 50 MG TAB.ER.24H PO SCH (07:35)
[2021-08-31] MEDS: Aspirin Enteric Coated 81 MG Tablet PO SCH (07:35)
[2021-08-31] MEDS: rOPINIRole 0.25 MG TABLET PO SCH ×2 (07:35→21:07)
[2021-08-31] MEDS: Dexamethasone Sodium Phos/PF 10 MG/ML VIAL IVP SCH (07:36)
[2021-08-31] MEDS: *HR* Metoprolol 5 MG/5 ML VIAL IVP PRN (07:48)
[2021-08-31] MEDS: cefTRIAXone 2,000 MG in Water for inj. (sterile) 20 ML IVP SCH (14:56)
[2021-08-31] MEDS: traZODone 50 MG TABLET PO SCH (21:07)
[2021-09-01 04:43] LABS: Basophils % 0.2 %; Monocytes % 3.7 %
[2021-09-01] MEDS: Azithromycin 500 MG in 0.9 % Sodium Chloride 250 ML IVPB SCH (04:44)
[2021-09-01 04:45] LABS: Hematocrit 43.5 % (35.3-44.9); Hemoglobin 13.4 g/dL (11.5-15.4); Immature Granulocytes % 1.3 % (0-4); Immature Platelets 11.1 % (1.1-6.1); Lymphocytes # 0.6 K/mcL (0.6-4.6); Lymphocytes % 3.1 %; Mean Corpuscular HGB Conc 30.8 g/dL (31.6-35.5); Mean Corpuscular Hemoglobin 23.6 pg (28.0-33.3); Mean Corpuscular Volume 76.4 fL (83.0-100.0); Monocytes # 0.7 K/mcL (0.0-1.3); Neutrophils # 18.1 K/mcL (1.6-8.9); Platelet Count 321 K/mcL (140-400); Red Blood Count 5.69 M/mcL (3.82-4.97); Red Cell Distribution Width 19.1 % (11.5-14.5); Segmented Neutrophils % 91.7 %; White Blood Count 19.7 K/mcL (4.3-11.1)
[2021-09-01 05:02] LABS: Calcium 8.1 mg/dL (8.6-10.3); Potassium 4.2 mEq/L (3.5-5.1)
[2021-09-01] MEDS: Heparin 25,000UNIT/250ML 1/2NS 25,000 UNIT/250 ML IV.SOLN IVC SCH ×2 (06:02→09:20)
[2021-09-01] MEDS: rOPINIRole 0.25 MG TABLET PO SCH ×2 (09:20→20:03)
[2021-09-01] MEDS: Aspirin Enteric Coated 81 MG Tablet PO SCH (09:20)
[2021-09-01] MEDS: Dexamethasone Sodium Phos/PF 10 MG/ML VIAL IVP SCH (09:20)
[2021-09-01] MEDS: Metoprolol XL (24 HR) Succ 50 MG TAB.ER.24H PO SCH (09:20)
[2021-09-01] MEDS: cefTRIAXone 1,000 MG in Water for inj. (sterile) 10 ML IVP SCH (16:51)
[2021-09-01] MEDS ORDERED: *HR* Enoxaparin 60 MG/0.6 ML SYRINGE SQ SCH (18:00)
[2021-09-01] MEDS: traZODone 50 MG TABLET PO SCH (20:03)
[2021-09-02 02:39] LABS: Basophils % 0.2 %; Monocytes % 3.1 %; Red Cell Distribution Width 19.6 % (11.5-14.5)
[2021-09-02 02:40] LABS: Basophils # 0.1 K/mcL (0.0-0.2); Hematocrit 47.5 % (35.3-44.9); Hemoglobin 14.2 g/dL (11.5-15.4); Immature Granulocytes % 1.7 % (0-4); Immature Platelets 13.2 % (1.1-6.1); Lymphocytes # 0.6 K/mcL (0.6-4.6); Mean Corpuscular HGB Conc 29.9 g/dL (31.6-35.5); Mean Corpuscular Hemoglobin 23.1 pg (28.0-33.3); Mean Corpuscular Volume 77.4 fL (83.0-100.0); Monocytes # 0.9 K/mcL (0.0-1.3); Neutrophils # 25.9 K/mcL (1.6-8.9); Platelet Count 391 K/mcL (140-400); Red Blood Count 6.14 M/mcL (3.82-4.97); White Blood Count 27.8 K/mcL (4.3-11.1)
[2021-09-02 02:57] LABS: Calcium 8.2 mg/dL (8.6-10.3); Potassium 4.2 mEq/L (3.5-5.1)
[2021-09-02 03:13] LABS: Anisocytosis 1+ (Not Present); Large Platelets Present (Not Present); Microcytosis Present (Not Present); Platelet Estimate Normal (Normal)
[2021-09-02] MEDS: Aspirin Enteric Coated 81 MG Tablet PO SCH (10:03)
[2021-09-02] MEDS: Dexamethasone Sodium Phos/PF 10 MG/ML VIAL IVP SCH (10:03)
[2021-09-02] MEDS: rOPINIRole 0.25 MG TABLET PO SCH ×2 (10:03→20:26)
[2021-09-02] MEDS: Azithromycin 250 MG TABLET PO SCH (10:03)
[2021-09-02] MEDS: Metoprolol XL (24 HR) Succ 50 MG TAB.ER.24H PO SCH (10:03)
[2021-09-02] MEDS: cefTRIAXone 1,000 MG in Water for inj. (sterile) 10 ML IVP SCH (16:15)
[2021-09-02] MEDS: *HR* Enoxaparin 60 MG/0.6 ML SYRINGE SQ SCH (16:16)
[2021-09-02] MEDS: traZODone 50 MG TABLET PO SCH (20:26)
[2021-09-03 06:01] LABS: Basophils % 0.2 %; Lymphocytes % 1.1 %; Nucleated Red Blood Cells 0.1 /100 WBC (0)
[2021-09-03 06:02] LABS: Basophils # 0.1 K/mcL (0.0-0.2); Hematocrit 48.7 % (35.3-44.9); Immature Granulocytes % 2.4 % (0-4); Immature Platelets 12.8 % (1.1-6.1); Lymphocytes # 0.3 K/mcL (0.6-4.6); Mean Corpuscular HGB Conc 30.8 g/dL (31.6-35.5); Mean Corpuscular Hemoglobin 23.3 pg (28.0-33.3); Mean Corpuscular Volume 75.5 fL (83.0-100.0); Monocytes # 1.1 K/mcL (0.0-1.3); Monocytes % 3.7 %; Neutrophils # 28.2 K/mcL (1.6-8.9); Platelet Count 407 K/mcL (140-400); Red Blood Count 6.45 M/mcL (3.82-4.97); Red Cell Distribution Width 19.5 % (11.5-14.5); Segmented Neutrophils % 92.6 %
[2021-09-03 06:08] LABS: White Blood Count 30.5 K/mcL (4.3-11.1)
[2021-09-03 07:13] LABS: Calcium 8.5 mg/dL (8.6-10.3); Potassium 4.6 mEq/L (3.5-5.1)
[2021-09-03] MEDS: rOPINIRole 0.25 MG TABLET PO SCH ×2 (09:10→21:23)
[2021-09-03] MEDS: Azithromycin 250 MG TABLET PO SCH (09:10)
[2021-09-03] MEDS: Dexamethasone Sodium Phos/PF 10 MG/ML VIAL IVP SCH (09:11)
[2021-09-03] MEDS: Aspirin Enteric Coated 81 MG Tablet PO SCH (09:11)
[2021-09-03] MEDS: Metoprolol XL (24 HR) Succ 50 MG TAB.ER.24H PO SCH (09:11)
[2021-09-03] MEDS: polyethylene glycoL 3350 17 GM POWD.PACK PO SCH (15:45)
[2021-09-03] MEDS: *HR* Enoxaparin 60 MG/0.6 ML SYRINGE SQ SCH (15:45)
[2021-09-03] MEDS: cefTRIAXone 1,000 MG in Water for inj. (sterile) 10 ML IVP SCH (15:46)
[2021-09-03] MEDS: traZODone 50 MG TABLET PO SCH (21:23)
[2021-09-04 05:02] LABS: BUN/Creatinine Ratio 46 (6-26); Blood Urea Nitrogen 42 mg/dL (8-23); Calcium 8.1 mg/dL (8.6-10.3); Carbon Dioxide 19 mEq/L (23-29); Chloride 114 mEq/L (98-107); Glucose 122 mg/dL (70-105); Osmolality,Calculated 304 (280-300); Potassium 4.3 mEq/L (3.5-5.1); Sodium 141 mEq/L (136-145); eGFR For African Americans > 60 (> 60); eGFR For Non-African Americans 58 (> 60)
[2021-09-04 05:22] LABS: Basophils # 0.1 K/mcL (0.0-0.2); Basophils % 0.2 %; Hematocrit 42.2 % (35.3-44.9); Hemoglobin 13.1 g/dL (11.5-15.4); Immature Granulocytes % 1.7 % (0-4); Immature Platelets 11.7 % (1.1-6.1); Lymphocytes # 0.3 K/mcL (0.6-4.6); Mean Corpuscular Hemoglobin 23.6 pg (28.0-33.3); Mean Corpuscular Volume 75.9 fL (83.0-100.0); Monocytes # 0.9 K/mcL (0.0-1.3); Monocytes % 3.2 %; Platelet Count 221 K/mcL (140-400); Red Blood Count 5.56 M/mcL (3.82-4.97); Red Cell Distribution Width 18.8 % (11.5-14.5); Segmented Neutrophils % 93.9 %; White Blood Count 27.7 K/mcL (4.3-11.1)
[2021-09-04 07:08] LABS: Platelet Estimate Normal (Normal)
[2021-09-04] MEDS: rOPINIRole 0.25 MG TABLET PO SCH ×2 (10:35→20:31)
[2021-09-04] MEDS: polyethylene glycoL 3350 17 GM POWD.PACK PO SCH (10:35)
[2021-09-04] MEDS: Metoprolol XL (24 HR) Succ 50 MG TAB.ER.24H PO SCH (10:35)
[2021-09-04] MEDS: Aspirin Enteric Coated 81 MG Tablet PO SCH (10:35)
[2021-09-04] MEDS: Dexamethasone Sodium Phos/PF 10 MG/ML VIAL IVP SCH (10:36)
[2021-09-04] MEDS: *HR* Enoxaparin 60 MG/0.6 ML SYRINGE SQ SCH (16:50)
[2021-09-04] MEDS: traZODone 50 MG TABLET PO SCH (20:31)
[2021-09-05] MEDS: Metoprolol XL (24 HR) Succ 50 MG TAB.ER.24H PO SCH (08:43)
[2021-09-05] MEDS: polyethylene glycoL 3350 17 GM POWD.PACK PO SCH (08:43)
[2021-09-05] MEDS: rOPINIRole 0.25 MG TABLET PO SCH ×2 (08:43→19:47)
[2021-09-05] MEDS: Aspirin Enteric Coated 81 MG Tablet PO SCH (08:43)
[2021-09-05] MEDS: Dexamethasone Sodium Phos/PF 10 MG/ML VIAL IVP SCH (08:50)
[2021-09-05] MEDS ORDERED: Ipratropium/Albuterol Neb 3 ML IH PRN (11:44)
[2021-09-05 14:58] LABS: Immature Granulocytes % 1.5 % (0-4); Lymphocytes % 1.1 %; Mean Corpuscular Volume 77.5 fL (83.0-100.0); Monocytes % 1.8 %
[2021-09-05 15:00] LABS: Basophils # 0.1 K/mcL (0.0-0.2); Basophils % 0.2 %; Hematocrit 43.1 % (35.3-44.9); Hemoglobin 13.2 g/dL (11.5-15.4); Immature Platelets 12.9 % (1.1-6.1); Lymphocytes # 0.3 K/mcL (0.6-4.6); Mean Corpuscular HGB Conc 30.6 g/dL (31.6-35.5); Mean Corpuscular Hemoglobin 23.7 pg (28.0-33.3); Monocytes # 0.5 K/mcL (0.0-1.3); Platelet Count 242 K/mcL (140-400); Red Blood Count 5.56 M/mcL (3.82-4.97); Red Cell Distribution Width 19.5 % (11.5-14.5); Segmented Neutrophils % 95.4 %; White Blood Count 26.2 K/mcL (4.3-11.1)
[2021-09-05 15:39] LABS: BUN/Creatinine Ratio 57 (6-26); Blood Urea Nitrogen 50 mg/dL (8-23); Calcium 8.2 mg/dL (8.6-10.3); Carbon Dioxide 17 mEq/L (23-29); Chloride 113 mEq/L (98-107); Glucose 121 mg/dL (70-105); Osmolality,Calculated 305 (280-300); Potassium 4.6 mEq/L (3.5-5.1); Sodium 140 mEq/L (136-145); eGFR For African Americans > 60 (> 60); eGFR For Non-African Americans > 60 (> 60)
[2021-09-05 15:40] LABS: Anisocytosis 1+ (Not Present); Platelet Estimate Normal (Normal)
[2021-09-05] MEDS: Ipratropium/Albuterol Neb 3 ML IH SCH ×2 (15:57→20:14)
[2021-09-05] MEDS: Acetylcysteine 10% 2 ML INHSOL IH SCH ×2 (15:58→20:14)
[2021-09-05] MEDS: traZODone 50 MG TABLET PO SCH (19:47)
[2021-09-05] MEDS: *HR* Enoxaparin 60 MG/0.6 ML SYRINGE SQ SCH (20:02)
[2021-09-06] MEDS: Acetylcysteine 10% 2 ML INHSOL IH SCH ×4 (03:45→20:56)
[2021-09-06] MEDS: Ipratropium/Albuterol Neb 3 ML IH SCH ×4 (03:46→20:56)
[2021-09-06 07:20] LABS: Basophils # 0.1 K/mcL (0.0-0.2); Basophils % 0.2 %; Hematocrit 40.1 % (35.3-44.9); Hemoglobin 12.7 g/dL (11.5-15.4); Immature Granulocytes % 1.9 % (0-4); Immature Platelets 14.3 % (1.1-6.1); Lymphocytes % 1.2 %; Mean Corpuscular HGB Conc 31.7 g/dL (31.6-35.5); Mean Corpuscular Hemoglobin 24.6 pg (28.0-33.3); Mean Corpuscular Volume 77.7 fL (83.0-100.0); Monocytes % 5.1 %; Platelet Count 344 K/mcL (140-400); Red Blood Count 5.16 M/mcL (3.82-4.97); Red Cell Distribution Width 19.4 % (11.5-14.5); Segmented Neutrophils % 91.6 %
[2021-09-06 07:23] LABS: Lymphocytes # 0.4 K/mcL (0.6-4.6); Monocytes # 1.9 K/mcL (0.0-1.3); Neutrophils # 33.2 K/mcL (1.6-8.9); White Blood Count 36.2 K/mcL (4.3-11.1)
[2021-09-06] MEDS: Metoprolol XL (24 HR) Succ 50 MG TAB.ER.24H PO SCH (07:40)
[2021-09-06] MEDS: polyethylene glycoL 3350 17 GM POWD.PACK PO SCH (07:40)
[2021-09-06] MEDS: rOPINIRole 0.25 MG TABLET PO SCH ×2 (07:40→21:10)
[2021-09-06] MEDS: *HR* Enoxaparin 60 MG/0.6 ML SYRINGE SQ SCH (07:44)
[2021-09-06] MEDS: Dexamethasone Sodium Phos/PF 10 MG/ML VIAL IVP SCH (07:44)
[2021-09-06 08:02] LABS: Calcium 8.3 mg/dL (8.6-10.3); Potassium 5.2 mEq/L (3.5-5.1)
[2021-09-06] MEDS: traZODone 50 MG TABLET PO SCH (21:11)
[2021-09-07] MEDS: Ipratropium/Albuterol Neb 3 ML IH SCH ×4 (03:16→20:02)
[2021-09-07] MEDS: Acetylcysteine 10% 2 ML INHSOL IH SCH ×4 (03:17→20:02)
[2021-09-07] MEDS: Pantoprazole 40 MG VIAL IVP SCH ×2 (06:33→08:12)
[2021-09-07 07:24] LABS: Red Cell Distribution Width 19.5 % (11.5-14.5)
[2021-09-07 07:26] LABS: Hematocrit 39.7 % (35.3-44.9); Hemoglobin 11.9 g/dL (11.5-15.4); Immature Platelets 13.1 % (1.1-6.1); Mean Corpuscular Hemoglobin 23.5 pg (28.0-33.3); Mean Corpuscular Volume 78.5 fL (83.0-100.0); Platelet Count 260 K/mcL (140-400); Red Blood Count 5.06 M/mcL (3.82-4.97)
[2021-09-07 07:58] LABS: White Blood Count 33.8 K/mcL (4.3-11.1)
[2021-09-07 08:08] LABS: Lymphocytes # 1.4 K/mcL (0.6-4.6); Neutrophils # 30.4 K/mcL (1.6-8.9); Platelet Estimate Normal (Normal)
[2021-09-07 08:10] LABS: Calcium 8.4 mg/dL (8.6-10.3); Potassium 4.8 mEq/L (3.5-5.1)
[2021-09-07] MEDS: rOPINIRole 0.25 MG TABLET PO SCH ×2 (08:12→20:45)
[2021-09-07] MEDS: Metoprolol XL (24 HR) Succ 50 MG TAB.ER.24H PO SCH (08:12)
[2021-09-07] MEDS: Dexamethasone Sodium Phos/PF 10 MG/ML VIAL IVP SCH (08:12)
[2021-09-07] MEDS: polyethylene glycoL 3350 17 GM POWD.PACK PO SCH (08:12)
[2021-09-07] MEDS: *HR* Enoxaparin 60 MG/0.6 ML SYRINGE SQ SCH (08:15)
[2021-09-07] MEDS ORDERED: Furosemide 20 MG/2 ML VIAL IVP ONE (08:52)
[2021-09-07] MEDS: Piperacillin/Tazobactam 3.375 GM in 0.9 % Sodium Chloride Mini Bag 100 ML IVPB SCH (16:28)
[2021-09-07] MEDS: traZODone 50 MG TABLET PO SCH (20:45)
[2021-09-08] MEDS: Piperacillin/Tazobactam 3.375 GM in 0.9 % Sodium Chloride Mini Bag 100 ML IVPB SCH ×3 (00:14→15:02)
[2021-09-08] MEDS: Ipratropium/Albuterol Neb 3 ML IH SCH ×4 (04:11→23:25)
[2021-09-08] MEDS: Acetylcysteine 10% 2 ML INHSOL IH SCH ×4 (04:11→23:25)
[2021-09-08 06:18] LABS: Lymphocytes # 0.4 K/mcL (0.6-4.6); Lymphocytes % 1.2 %; White Blood Count 29.1 K/mcL (4.3-11.1)
[2021-09-08 06:20] LABS: Basophils # 0.1 K/mcL (0.0-0.2); Basophils % 0.2 %; Hemoglobin 11.7 g/dL (11.5-15.4); Immature Granulocytes % 1.4 % (0-4); Immature Platelets 13.1 % (1.1-6.1); Mean Corpuscular Hemoglobin 23.6 pg (28.0-33.3); Mean Corpuscular Volume 78.6 fL (83.0-100.0); Monocytes # 1.9 K/mcL (0.0-1.3); Monocytes % 6.4 %; Platelet Count 255 K/mcL (140-400); Red Blood Count 4.96 M/mcL (3.82-4.97); Red Cell Distribution Width 19.6 % (11.5-14.5); Segmented Neutrophils % 90.8 %
[2021-09-08 06:37] LABS: Albumin/Globulin Ratio 1.3 (1.1-2.2); Bilirubin,Direct 0.1 mg/dL (0.0-0.2); Bilirubin,Indirect 0.4 mg/dL (0.0-1.0); Bilirubin,Total 0.5 mg/dL (0.3-1.0); Calcium 8.4 mg/dL (8.6-10.3); Globulin 2.3 g/dL (2.4-3.5); Potassium 4.9 mEq/L (3.5-5.1); Total Protein 5.3 g/dL (6.4-8.9)
[2021-09-08 06:49] LABS: Neutrophils # 26.4 K/mcL (1.6-8.9)
[2021-09-08] MEDS: rOPINIRole 0.25 MG TABLET PO SCH ×2 (07:37→19:34)
[2021-09-08] MEDS: polyethylene glycoL 3350 17 GM POWD.PACK PO SCH (07:37)
[2021-09-08] MEDS: Metoprolol XL (24 HR) Succ 50 MG TAB.ER.24H PO SCH (07:37)
[2021-09-08] MEDS: Pantoprazole 40 MG VIAL IVP SCH (07:44)
[2021-09-08] MEDS: *HR* Enoxaparin 60 MG/0.6 ML SYRINGE SQ SCH (07:46)
[2021-09-08] MEDS ORDERED: Dexamethasone Sodium Phos/PF 10 MG/ML VIAL IVP SCH (09:00)
[2021-09-08] MEDS ORDERED: Morphine Sulfate Oral CONC 10 MG/0.5 ML ORAL.SYG SL PRN (13:31)
[2021-09-08] MEDS ORDERED: *HR* LORazepam 2 MG/ML VIAL IVP PRN (13:36)
[2021-09-08] MEDS: traZODone 50 MG TABLET PO SCH (19:34)
[2021-09-09] MEDS: Piperacillin/Tazobactam 3.375 GM in 0.9 % Sodium Chloride Mini Bag 100 ML IVPB SCH ×2 (00:28→08:29)
[2021-09-09] MEDS: Acetylcysteine 10% 2 ML INHSOL IH SCH ×2 (03:29→11:21)
[2021-09-09] MEDS: Ipratropium/Albuterol Neb 3 ML IH SCH ×2 (03:29→11:21)
[2021-09-09 06:30] LABS: Hematocrit 39.2 % (35.3-44.9); Hemoglobin 11.7 g/dL (11.5-15.4); Immature Platelets 12.9 % (1.1-6.1); Mean Corpuscular HGB Conc 29.8 g/dL (31.6-35.5); Mean Corpuscular Hemoglobin 23.9 pg (28.0-33.3); Platelet Count 290 K/mcL (140-400); Red Cell Distribution Width 19.9 % (11.5-14.5)
[2021-09-09 06:36] LABS: White Blood Count 33.7 K/mcL (4.3-11.1)
[2021-09-09 06:53] LABS: Calcium 8.6 mg/dL (8.6-10.3); Potassium 4.4 mEq/L (3.5-5.1)
[2021-09-09 06:58] LABS: Neutrophils # 33.7 K/mcL (1.6-8.9); Platelet Estimate Normal (Normal)
[2021-09-09] MEDS: *HR* Enoxaparin 60 MG/0.6 ML SYRINGE SQ SCH (08:29)
[2021-09-09] MEDS: Pantoprazole 40 MG VIAL IVP SCH (08:29)
[2021-09-09] MEDS ORDERED: Atropine 1% Opth Drops 100 DROP/5 ML BOTTLE SL PRN (11:19)
[2021-09-09] MEDS ORDERED: Haloperidol Lactate 5 MG/ML VIAL IVP PRN (11:21)
[2021-09-09] MEDS ORDERED: *HR* LORazepam 2 MG/ML VIAL IVP PRN (11:22)
[2021-09-09] MEDS: Metoprolol XL (24 HR) Succ 50 MG TAB.ER.24H PO SCH (14:44)
[2021-09-09] MEDS: polyethylene glycoL 3350 17 GM POWD.PACK PO SCH (14:45)
[2021-09-09] MEDS: rOPINIRole 0.25 MG TABLET PO SCH (14:45)
[2021-09-09] MEDS: Morphine Sulfate Oral CONC 10 MG/0.5 ML ORAL.SYG SL PRN ×2 (16:02→20:15)
[2021-09-09] MEDS: Morphine Sulfate 2 MG/ML SYRINGE IVP PRN (23:23)
[2021-09-10] MEDS: Morphine Sulfate 2 MG/ML SYRINGE IVP PRN ×3 (04:36→13:20)
[2021-09-10] MEDS: Artificial Tears SOLN 15 ML BOTTLE BOTH EYES SCH ×3 (09:55→17:18)
[2021-09-10 10:42] VITALS: BP 117/74; PULSE 117; TEMP 98.1; O2SAT 75
== END 2021-09-10 18:50 | disposition expired | DRG 871 ==
LOC: EMEROOARM 00:47 → 2NNU 00:47 → SUATTDRO 04:13 → OBSVTOIN 04:13 → 2NNU 04:14 → 2NENU 16:03 → 2ANU 09-09 15:52
PROVIDERS: ADMIT Internal Medicine; ATTEND Internal Medicine